=== PATIENT | male | born 1945 | race Caucasian/White ===

== ENCOUNTER → 2017-10-26 | Outpatient (CLI) | payer MEDICARE, OTHER ==
[~2017-10-26] MED LIST: BUPIVACAINE MPF 0.25% 10 ML VIAL.; IOHEXOL 180 MG/ML 10 ML VIAL.; LIDOCAINE 1% PF 2 ML VIAL.; methylPREDNISolone ACETATE 80 MG/ML VIAL.
== END | disposition home or self-care (01) ==
LOC: PNCL 08:19
DX: M51.16 Intervertebral disc disorders with radiculopathy, lumbar region (principal); M48.061 Spinal stenosis, lumbar region without neurogenic claudication; Z79.899 Other long term (current) drug therapy
CPT/HCPCS: 64483; J1040; J3490; Q9965

== ENCOUNTER 2018-06-24 07:26 | Inpatient (IN) | payer MEDICARE, OTHER ==
[~2018-06-24] VITALS: Ht 172.7 cm; Wt 98.5 kg
[2018-06-24] VITALS (11 sets, daily range): BP systolic 146–193; BP diastolic 67–92
[~2018-06-24 07:26] MED LIST changes: +AMLO10TA8 PO; +ASPI-482 PO; +ATOR10TA60 PO; -BUPIVACAINE MPF 0.25% 10 ML VIAL.; +CYCL10TA2 PO; +HYDR-2761 PO; +IBUP200C9 PO; -IOHEXOL 180 MG/ML 10 ML VIAL.; -LIDOCAINE 1% PF 2 ML VIAL.; +LISI10TA2 PO; +MELO15TA23 PO; +METO50TA6 PO; +MULT1TAB52 PO; +ROPI1TAB2 PO; +ZOLP10TA4 PO; -methylPREDNISolone ACETATE 80 MG/ML VIAL.
--- NOTE | 2018-06-24 08:09 | PHYS DOC ---
Past Medical History Past Medical History: High Cholesterol, Hypertension Additional Past Medical Histor: rls Past Surgical History bilateral hernia repair lipoma removal "tumor drainage in 7th grade of the abdomen" Smoking: Cigarettes Alcohol Use: Occasionally Drug Use: None Adult General Chief Complaint Chief Complaint: CHEST PAIN HPI HPI 72-year-old male presenting to the emergency department today with a referral from his primary care physician because his EKG was abnormal. He was seen on Wednesday with Dr. linn who asked him to go to the emergency department based on the patient's EKG. The patient had somethings to do. He returns this morning to be evaluated. He describes a mild dull pain in his chest this morning it is nonradiating intermittent and without alleviating factors. He denies nausea or vomiting. Review of systems is negative for abdominal pain nausea vomiting diaphoresis fevers or chills. All other review of systems is negative unless otherwise noted in history of present illness. ED course: 72-year-old male presenting the emergency department today with chest pain referred here by his primary physician for EKG abnormalities. EKG obtained and reviewed by myself this morning and compared to previous from clinic which the patient brought in. EKG shows sinus rhythm with a regular rate. ST segments are congruent. Not suggestive of ACS. There are nonspecific T- wave inversions in the lateral leads including high lateral I and aVL. 08:19AM Troponin is positive. We will give the patient aspirin. Patient's pain is improving in the emergency department. We will admit the patient to Dr. linn who I spoke to at [phone]. He accepted the patient for admission. Basic bridge orders placed.09:44AM. Review of Systems Review of Systems SEE ABOVE. Current Medications Current Medications Current Medications Medications (Trade) Dose Ordered Sig/Deneen Start Time Stop Time Status Last Admin Dose Admin Aspirin (Children'S Aspirin) 324 mg 1X ONCE 06/24/18 09:15 06/24/18 09:16 DC 06/24/18 09:03 324 MG Sodium Chloride 1,000 ml @ 100 mls/hr Q10H 06/24/18 08:43 06/25/18 08:42 06/24/18 09:02 100 MLS/HR Allergies Allergies Allergies Coded Allergies Type Severity Reaction Last Updated Verified No Known Drug Allergies 08/16/13 No Physical Exam Physical Exam SEE ABOVE Constitutional: Well developed, well nourished, no acute distress, non-toxic appearance. HENT: Normocephalic, atraumatic, bilateral external ears normal, oropharynx moist, no oral exudates, nose normal. [] Eyes: PERRLA, EOMI, conjunctiva normal, no discharge. Neck: Normal range of motion, no tenderness, supple, no stridor. [] Cardiovascular:Heart rate regular rhythm, no murmur Lungs & Thorax: Bilateral breath sounds clear to auscultation [] Abdomen: Bowel sounds normal, soft, no tenderness, no masses, no pulsatile masses. Skin: Warm, dry, no erythema, no rash. [] Back: No tenderness, no CVA tenderness. Extremities: No tenderness, no cyanosis, no clubbing, ROM intact, no edema. palpable pulses in both arms. Neurologic: Alert and oriented X 3, normal motor function, normal sensory function, no focal deficits noted. [] Psychologic: Affect normal, judgement normal, mood normal. Current Patient Data Vital Signs Vital Signs Date Time Temp Pulse Resp B/P (MAP) Pulse Ox O2 Delivery O2 Flow Rate FiO2 06/24/18 07:45 98.4 73 16 198/88 (124) 97 Room Air 98.4 Lab Values Laboratory Tests Test 06/24/18 08:00 White Blood Count 6.9 x10^3/uL (4.0-11.0) Red Blood Count 5.63 x10^6/uL (4.30-5.70) Hemoglobin 16.9 g/dL (13.0-17.5) Hematocrit 49.9 % (39.0-53.0) Mean Corpuscular Volume 89 fL (79-100) Mean Corpuscular Hemoglobin 30 pg (25-35) Mean Corpuscular Hemoglobin Concent 34 g/dL (31-37) Red Cell Distribution Width 13.8 % (11.5-14.5) Platelet Count 196 x10^3/uL (140-400) Neutrophils (%) (Auto) 62 % (31-73) Lymphocytes (%) (Auto) 26 % (24-48) Monocytes (%) (Auto) 9 % (0-9) Eosinophils (%) (Auto) 3 % (0-3) Basophils (%) (Auto) 1 % (0-3) Neutrophils # (Auto) 4.3 x10^3uL (1.8-7.7) Lymphocytes # (Auto) 1.8 x10^3/uL (1.0-4.8) Monocytes # (Auto) 0.6 x10^3/uL (0.0-1.1) Eosinophils # (Auto) 0.2 x10^3/uL (0.0-0.7) Basophils # (Auto) 0.1 x10^3/uL (0.0-0.2) Prothrombin Time 13.6 SEC (11.7-14.0) Prothrombin Time INR 1.1 (0.8-1.1) PTT 27 SEC (24-38) Sodium Level 140 mmol/L (136-145) Potassium Level 4.2 mmol/L (3.5-5.1) Chloride Level 104 mmol/L (98-107) Carbon Dioxide Level 26 mmol/L (21-32) Anion Gap 10 (6-14) Blood Urea Nitrogen 11 mg/dL (8-26) Creatinine 1.2 mg/dL (0.7-1.3) Estimated GFR (Cockcroft-Gault) 59.9 Glucose Level 111 mg/dL (70-99) H Lactic Acid Level 1.0 mmol/L (0.4-2.0) Calcium Level 9.0 mg/dL (8.5-10.1) Total Bilirubin 0.4 mg/dL (0.2-1.0) Direct Bilirubin 0.1 mg/dL (0.0-0.2) Aspartate Amino Transferase (AST) 18 U/L (15-37) Alanine Aminotransferase (ALT) 26 U/L (16-63) Alkaline Phosphatase 90 U/L (46-116) Troponin I Quantitative 0.168 ng/mL (0.000-0.055) BX-Btl-N-Type Natriuretic Peptide 2372 pg/mL (0-124) H Total Protein 7.4 g/dL (6.4-8.2) Albumin 3.6 g/dL (3.4-5.0) Lipase 94 U/L (73-393) Laboratory Tests 06/24/18 08:00 Laboratory Tests 06/24/18 08:00 EKG EKG [] Radiology/Procedures Radiology/Procedures [] Course & Med Decision Making Course & Med Decision Making Pertinent Labs and Imaging studies reviewed. (See chart for details) [] Dragon Disclaimer Dragon Disclaimer This electronic medical record was generated, in whole or in part, using a voice recognition dictation system. Departure Departure Impression: Primary Impression: Chest pain Disposition: ADMITTED INPATIENT Admitting Physician: Jd Durán Condition: STABLE Referrals: JD DURÁN MD (PCP) DILSHAD BAIG MD Jun 24, 2018 08:09
[2018-06-24 08:15] LABS: BASO # 0.1 x10^3/uL (0.0-0.2); BASO % 1 % (0-3); EOS # 0.2 x10^3/uL (0.0-0.7); EOS % 3 % (0-3); HEMATOCRIT 49.9 % (39.0-53.0); HEMOGLOBIN 16.9 g/dL (13.0-17.5); LYMPH # 1.8 x10^3/uL (1.0-4.8); LYMPH % 26 % (24-48); MEAN CORPUSCULAR HEMOGLOBIN 30 pg (25-35); MEAN CORPUSCULAR HGB CONC 34 g/dL (31-37); MEAN CORPUSCULAR VOLUME 89 fL (79-100); MONO # 0.6 x10^3/uL (0.0-1.1); MONO % 9 % (0-9); NEUT # 4.3 x10^3uL (1.8-7.7); NEUT % 62 % (31-73); PLATELET COUNT 196 x10^3/uL (140-400); RED BLOOD COUNT 5.63 x10^6/uL (4.30-5.70); RED CELL DISTRIBUTION WIDTH 13.8 % (11.5-14.5); WHITE BLOOD COUNT 6.9 x10^3/uL (4.0-11.0)
[2018-06-24 08:24] LABS: PROTHROMBIN TIME PATIENT 13.6 SEC (11.7-14.0)
--- NOTE | 2018-06-24 08:24 | RAD ---
EXAM: CHEST 1 VIEW History: Chest pain COMPARISON: None available. TECHNIQUE: Single portable radiograph of the chest FINDINGS: The cardiac silhouette is unremarkable. The lungs are clear bilaterally. The costophrenic sulci are clear and well demarcated. IMPRESSION: No radiographic evidence of an acute cardiopulmonary process. Electronically signed by: Skinny Cano MD (06/24/2018 8:21 AM) [id number]
[2018-06-24 08:32] LABS: CREATININE 1.2 mg/dL (0.7-1.3); GFR 59.9; POTASSIUM 4.2 mmol/L (3.5-5.1)
[2018-06-24 08:37] LABS: ALBUMIN 3.6 g/dL (3.4-5.0); DIRECT BILIRUBIN 0.1 mg/dL (0.0-0.2); TOTAL BILIRUBIN 0.4 mg/dL (0.2-1.0); TOTAL PROTEIN 7.4 g/dL (6.4-8.2)
[2018-06-24] MEDS ORDERED: IV NORMAL SALINE 1000ML BAG 1,000 ML IV SCH (08:43)
[2018-06-24] MEDS ORDERED: ASPIRIN CHEWABLE 81 MG TABLET. PO ONE (09:15)
[2018-06-24] MEDS ORDERED: NITROGLYCERIN SUBLINGUAL 0.4 MG BOTTLE OF 25. SL PRN (09:45)
[2018-06-24] MEDS ORDERED: HYDROcodone/APAP 5/325MG 1 TAB TABLET PO PRN (11:00)
[2018-06-24] MEDS ORDERED: METOPROLOL TART IMMED RELEASE 50 MG TABLET. PO SCH (11:30)
[2018-06-24] MEDS: ENOXAPARIN 40 MG/0.4 ML SYRINGE. SQ SCH (11:38)
[2018-06-24] MEDS: amLODIPine BESYLATE 10 MG TABLET PO SCH (11:38)
[2018-06-24] MEDS: rOPINIRole 1 MG TABLET. PO SCH ×2 (11:38→21:27)
[2018-06-24] MEDS: MULTIVITAMIN with MINERAL TABLET. PO SCH (11:38)
[2018-06-24 12:39] LABS: BILIRUBIN,URINE NEGATIVE (NEG); CLARITY,URINE CLEAR; COLOR,URINE YELLOW; NITRITE,URINE NEGATIVE (NEG); PROTEIN,URINE NEGATIVE (NEG-TRACE); UROBILINOGEN,URINE 0.2 mg/dL (0.2 mg/dL)
--- NOTE | 2018-06-24 12:39 | EKG ---
[facility] [address] [place] [address] Test Date: 2018-06-24 Test Time: 07:47:21 Pat Name: AMARILYS SERVIN Department: Room: 252 1 Gender: M Billing Analyst: : [id number] Requested By: DILSHAD BAIG Order Number: [id number] Reading MD: Teddy Clemens MD Measurements Intervals [place] Rate: 73 P: 59 [place]: 176 QRS: -22 QRSD: 86 T: 102 QT: 384 QTc: 427 Interpretive Statements SINUS RHYTHM CONSIDER LVH POOR R WAVE PROGRESSION Electronically Signed On 06-24-2018 17:32:13 CDT by Teddy Clemens MD
[2018-06-24 12:49] LABS: BACTERIA,URINE 0 /HPF (0-FEW); RBC,URINE 0 /HPF (0-2); SQUAMOUS EPITHELIAL CELL,UR FEW /LPF; WBC,URINE RARE /HPF (0-4)
--- NOTE | 2018-06-24 13:26 | PDOC2 ---
HELEN LUNDY CROCHETER 06/24/18 1326: CARDIAC CONSULT DATE OF CONSULT Date of Consult DATE: 06/24/18 TIME: 13:22 REASON FOR CONSULT Reason for Consult: Elevated troponin REFERRING PHYSICIAN Referring Physician: Dr. Durán SOURCE Source: Chart review, Patient HISTORY OF PRESENT ILLNESS HISTORY OF PRESENT ILLNESS This is a 72 yo male who presented to the ED from Dr. Durán's office secondary to abnormal EKG. Patient was at PCP office for routine followup two days ago. EKG was conducted and was reportedly abnormal. PCP referred patient tho the ED for further cardiac workup. Patient decided to come to the ED today as he has to take care of some things over the last couple of day. Did not take his routine oral antiHTN therapy and he does report compliance with these. BP significantly elevated upon arrival. Trop noted to be mildly elevated at 0.186. Patient reports experiencing some mild chest pressure in his central chest in the ED. No associated SOA, palpitations, diaphoresis, dizziness, or nausea/ vomiting. Pain lasted about an hours and resolved without intervention. Feels pain is related to anxiety. Patient additionally denies any recent CP with exertion, WISE, orthopnea, or PND. No previous h/o CAD. PAST MEDICAL HISTORY Cardiovascular: HTN, Hyperlipidemia Pulmonary: Other (ELIAS with CPAP) CENTRAL NERVOUS SYSTEM: Other (no pertinent hx) GI: No pertinent hx Heme/Onc: No pertinent hx Hepatobiliary: No pertinent hx Psych: Anxiety Musculoskeletal: Osteoarthritis Rheumatologic: No pertinent hx Infectious disease: No pertinent hx ENT: No pertinent hx Renal/: No pertinent hx Endocrine: Diabetes Dermatology: No pertinent hx PAST SURGICAL HISTORY Past Surgical History: Hernia Repair FAMILY HISTORY Family History: Diabetes, Hypertension SOCIAL HISTORY Smoke: 1 pack per day ALCOHOL: none Drugs: None Lives: with Family CURRENT MEDICATIONS CURRENT MEDICATIONS Current Medications Medications (Trade) Dose Ordered Sig/Deneen Route PRN Reason Start Time Stop Time Status Last Admin Dose Admin Aspirin (Children'S Aspirin) 324 mg 1X ONCE PO 06/24/18 09:15 06/24/18 09:16 DC 06/24/18 09:03 Sodium Chloride 1,000 ml @ 100 mls/hr Q10H IV 06/24/18 08:43 06/24/18 12:06 DC 06/24/18 09:02 Amlodipine Besylate (Norvasc) 10 mg DAILY PO 06/24/18 11:30 06/24/18 11:38 Metoprolol Tartrate (Lopressor) 50 mg BID PO 06/24/18 11:30 06/24/18 11:38 Multivitamins (Thera M Plus) 1 tab DAILY PO 06/24/18 11:30 06/24/18 11:38 Ropinirole HCl (Requip) 2 mg BID PO 06/24/18 11:30 06/24/18 11:38 Enoxaparin Sodium (Lovenox 40mg Syringe) 40 mg Q24H SQ 06/24/18 11:30 06/24/18 11:38 ALLERGIES ALLERGIES: Coded Allergies: No Known Drug Allergies (Unverified , 08/16/13) ROS Review of System 14 point ROS conducted with pertinent positives noted above in HPI. PHYSICAL EXAM General: Alert, Oriented X3, Cooperative, No acute distress HEENT: Atraumatic, Mucous membr. moist/pink Lungs: Clear to auscultation, Normal air movement Heart: Regular rate, Normal S1, Normal S2, Other (2/6 systolic murmur ) Extremities: No edema, Normal pulses Skin: No significant lesion Neuro: Normal speech, Sensation intact Psych/Mental Status: Mental status NL, Mood NL MUSCULOSKELETAL: Osteoarthritic changes both hands VITALS VITALS Vital Signs Date Time Temp Pulse Resp B/P (MAP) Pulse Ox O2 Delivery O2 Flow Rate FiO2 06/24/18 11:38 69 198/106 06/24/18 11:16 Room Air 06/24/18 11:05 98.0 18 98 98.0 LABS Lab: Laboratory Tests Test 06/24/18 08:00 06/24/18 09:50 White Blood Count 6.9 x10^3/uL (4.0-11.0) Red Blood Count 5.63 x10^6/uL (4.30-5.70) Hemoglobin 16.9 g/dL (13.0-17.5) Hematocrit 49.9 % (39.0-53.0) Mean Corpuscular Volume 89 fL (79-100) Mean Corpuscular Hemoglobin 30 pg (25-35) Mean Corpuscular Hemoglobin Concent 34 g/dL (31-37) Red Cell Distribution Width 13.8 % (11.5-14.5) Platelet Count 196 x10^3/uL (140-400) Neutrophils (%) (Auto) 62 % (31-73) Lymphocytes (%) (Auto) 26 % (24-48) Monocytes (%) (Auto) 9 % (0-9) Eosinophils (%) (Auto) 3 % (0-3) Basophils (%) (Auto) 1 % (0-3) Neutrophils # (Auto) 4.3 x10^3uL (1.8-7.7) Lymphocytes # (Auto) 1.8 x10^3/uL (1.0-4.8) Monocytes # (Auto) 0.6 x10^3/uL (0.0-1.1) Eosinophils # (Auto) 0.2 x10^3/uL (0.0-0.7) Basophils # (Auto) 0.1 x10^3/uL (0.0-0.2) Prothrombin Time 13.6 SEC (11.7-14.0) Prothromb Time International Ratio 1.1 (0.8-1.1) Activated Partial Thromboplast Time 27 SEC (24-38) Sodium Level 140 mmol/L (136-145) Potassium Level 4.2 mmol/L (3.5-5.1) Chloride Level 104 mmol/L (98-107) Carbon Dioxide Level 26 mmol/L (21-32) Anion Gap 10 (6-14) Blood Urea Nitrogen 11 mg/dL (8-26) Creatinine 1.2 mg/dL (0.7-1.3) Estimated GFR (Cockcroft-Gault) 59.9 Glucose Level 111 mg/dL (70-99) Lactic Acid Level 1.0 mmol/L (0.4-2.0) Calcium Level 9.0 mg/dL (8.5-10.1) Total Bilirubin 0.4 mg/dL (0.2-1.0) Direct Bilirubin 0.1 mg/dL (0.0-0.2) Aspartate Amino Transf (AST/SGOT) 18 U/L (15-37) Alanine Aminotransferase (ALT/SGPT) 26 U/L (16-63) Alkaline Phosphatase 90 U/L (46-116) Troponin I Quantitative 0.168 ng/mL (0.000-0.055) PV-Gzm-Z-Type Natriuretic Peptide 2372 pg/mL (0-124) Total Protein 7.4 g/dL (6.4-8.2) Albumin 3.6 g/dL (3.4-5.0) Lipase 94 U/L (73-393) Urine Collection Type Unknown Urine Color Yellow Urine Clarity Clear Urine pH 5.0 Urine Specific [place] 1.020 Urine Protein Negative mg/dL (NEG-TRACE) Urine Glucose (UA) Negative mg/dL (NEG) Urine Ketones (Stick) Negative mg/dL (NEG) Urine Blood Negative (NEG) Urine Nitrite Negative (NEG) Urine Bilirubin Negative (NEG) Urine Urobilinogen Dipstick 0.2 mg/dL (0.2 mg/dL) Urine Leukocyte Esterase Negative (NEG) Urine RBC 0 /HPF (0-2) Urine WBC Rare /HPF (0-4) Urine Squamous Epithelial Cells Few /LPF Urine Bacteria 0 /HPF (0-FEW) ASSESSMENT/PLAN ASSESSMENT/PLAN 1. Chest pressure, mixed features. Possibly related to #2. EKG notable for lateral t-wave inversion 2. Accelerated hypertension 3. Mild troponin elevation; 0168 upon arrival 4. Hyperlipidemia; statin 5. Diabetes, II 6. ELIAS with CPAP 7. Tobaccoism; discussed/encourage cessation 8. Anxiety Recommendations Trend trop Check lipids Echo to assess LV systolic function Will need further ischemic workup based upon risk factors and EKG. Stress test versus cardiac cath dependent upon trop trend and echo. Maintain BP control HEIDY ROBERTS MD 06/24/18 1827: CARDIAC CONSULT ASSESSMENT/PLAN ASSESSMENT/PLAN Patient seen and examined. Agree with above nurse practitioner note. 72-year-old male with uncontrolled hypertension presenting with elevated troponin. He has moderate LV systolic dysfunction. He was taken to the catheter lab for further evaluation. No significant coronary artery disease noted. Continue medical therapy. Follow-up on an outpatient basis for titration of medical therapy HELEN LUNDY APRN Jun 24, 2018 13:26 HEIDY ROBERTS MD Jun 24, 2018 18:27
[2018-06-24] MEDS ORDERED: LIDOCAINE 1% Multi-Dose 20 ML VIAL. ONE (13:53)
[2018-06-24] MEDS ORDERED: MIDAZOLAM HCL/PF 2 MG/2 ML VIAL. ONE (14:14)
[2018-06-24] MEDS ORDERED: VERAPAMIL 5 MG/2 ML VIAL. ONE (14:14)
[2018-06-24] MEDS ORDERED: fentaNYL PF VIAL 100 MCG/2 ML VIAL ONE (14:14)
[2018-06-24] MEDS ORDERED: HEPARIN for IV BOLUS 10,000 UNIT/10 ML VIAL. ONE (14:14)
[2018-06-24] MEDS ORDERED: NITROGLYCERIN 200 MCG/2 ML SYRINGE FOR CATH/VASC LAB. ONE (14:15)
[2018-06-24] MEDS ORDERED: IODIXANOL 320 MG/ML 100 ML VIAL. ONE (14:25)
[2018-06-24] MEDS ORDERED: ALPRAZolam 0.5 MG TABLET PO ONE ×3 (14:30→21:45)
[2018-06-24] MEDS ORDERED: HEPARIN for IV BOLUS 10,000 UNIT/10 ML VIAL. IART ONE (14:30)
[2018-06-24] MEDS ORDERED: MIDAZOLAM HCL/PF 2 MG/2 ML VIAL. IV ONE (14:30)
[2018-06-24] MEDS ORDERED: LIDOCAINE 1% PF 2 ML VIAL. INJ ONE (14:30)
[2018-06-24] MEDS ORDERED: fentaNYL PF VIAL 100 MCG/2 ML VIAL IV ONE (14:30)
[2018-06-24] MEDS ORDERED: IODIXANOL 320 MG/ML 100 ML VIAL. IART ONE (14:30)
[2018-06-24] MEDS ORDERED: VERAPAMIL 5 MG/2 ML VIAL. IART ONE (14:30)
[2018-06-24] MEDS ORDERED: NITROGLYCERIN 200 MCG/2 ML SYRINGE FOR CATH/VASC LAB. IART ONE (14:30)
--- NOTE | 2018-06-24 15:39 | CARD ---
MR#: [id number] Date of Study: 06/24/2018 Ordering Physician: KISHAN HUGHES, Referring Physician: KISHAN HUGHES, Tech: RT Shannan (R) APPROVED REPORT Technologist: RT Shannan (R) Nurse: Tangela Almonte Procedure(s) performed: Moderate Sedation: 30 minutes Fluoro Time: 5.3 min Coronary angiography HISTORY The patient is a 72 year-old male with a history of : hypertension. INDICATION The indication(s) include : non-STEMI , dyspnea. PROCEDURE NARRATIVE INFORMED CONSENT: After explaining the risks and benefits of the procedure and alternatives, informed consent was obtained. The patient was brought electively to the cardiac catheterization lab. A timeout was performed confi rming the patient's name, date of , procedure, and site of procedure. All necessary personnel w ere wearing the appropriate protective equipment and radiation monitor devices. (See nursing notes for medications administered). ACCESS: The right wrist was sterilely prepped and draped in the usual fashion. The right wrist was infiltrat ed with 1 mL of 2% lidocaine for subcutaneous anesthesia. A 6 Maori Terumo glide sheath was inserte d into the right radial artery without difficulty. CORONARY ANGIOGRAPHY: Right and left coronary angiography was performed using a 6Fr TIG 4.0 catheter. All catheter exchan ges and advancements were performed over a guidewire. CLOSURE: At case completion the right radial sheath was removed and a Terumo radial band was applied with 13 m l of air. COMPLICATIONS: The patient tolerated the procedure well and there were no immediate complications. FINDINGS: HEMODYNAMICS: AO: 150/80 CORONARY ANGIOGRAPHY: LM is a large caliber vessel with normal angiographic appearance. LAD is a moderate caliber vessel with normal angiographic appearance. Several small caliber diagonal vessels are without significant disease. LCx is a moderate caliber non-dominant vessel with mild luminal irregularities. OM1 is a moderate caliber vessel with normal angiographic appearance. RCA is a large caliber dominant vessel with mild disease of up to 30%. RPDA and RPL are moderate to large caliber vessels with mild luminal irregularities. Conclusion 1. No significant obstructive coronary disease Recommendations 1. Medical therapy Signed by : Teddy Katrapati, Electronically Approved : 06/24/2018 15:38:48
--- NOTE | 2018-06-24 15:42 | CARD ---
MR#: [id number] Date of Study: 06/24/2018 Ordering Physician: HELEN LUNDY, Referring Physician: KISHAN HUGHES Tech: Mary Troncoso [facility] APPROVED REPORT EXAM: Two-dimensional and M-mode echocardiogram with Doppler and color Doppler. Other Information Quality : AverageHR: 60bpm Rhythm : NSR INDICATION Elevated Troponin 2D DIMENSIONS RVDd3.4 (2.9-3.5cm)Left Atrium(2D)3.3 (1.6-4.0cm) IVSd1.5 (0.7-1.1cm)Aortic Root(2D)3.4 (2.0-3.7cm) LVDd5.9 (3.9-5.9cm)LVOT Diameter2.1 (1.8-2.4cm) PWd1.2 (0.7-1.1cm)LVDs4.8 (2.5-4.0cm) FS (%) 17.3 %SV60.3 ml Aortic Valve AoV Peak Chevy.131.5cm/sAoV VTI22.9cm AO Peak GR.6.9mmHgLVOT Peak Chevy.78.1cm/s AO Mean GR.4mmHgAVA (VMAX)2.09cm2 CM (VTI)2.36gr6YV P 1/2 Qpdi808kb Mitral Valve MV E Jhqmljoq01.9cm/sMV DECEL [id number] MV A Bdbnwqbo62.7cm/sE/A Ratio1.5 MV A Wclokhhv31ep LEFT VENTRICLE The Left Ventricle is mild to moderately dilated. There is mild concentric left ventricular hypertrop hy. The ejection fraction is severely impaired. The Ejection Fraction is 25-30%. There is global hypo kinesis of the left ventricle. Transmitral Doppler flow pattern is abnormal. RIGHT VENTRICLE The right ventricle is normal size. There is normal right ventricular wall thickness. The right ventr icular systolic function is normal. ATRIA The left atrium size is normal. The right atrium size is normal. The interatrial septum is intact wit h no evidence for an atrial septal defect or patent foramen ovale as noted on 2-D or Doppler imaging. AORTIC VALVE The aortic valve is normal in structure and function. The aortic valve is trileaflet. Doppler and Col or Flow revealed mild aortic regurgitation. There is no significant aortic valvular stenosis. There i s no aortic valvular vegetation. MITRAL VALVE The mitral valve is normal in structure and function. There is no evidence of mitral valve prolapse. There is no mitral valve stenosis. Doppler and Color-flow revealed mild mitral regurgitation. TRICUSPID VALVE The tricuspid valve is normal in structure and function. Doppler and Color Flow revealed trace tricus pid regurgitation. There is no tricuspid valve prolapse or vegetation. There is no tricuspid valve st enosis. PULMONIC VALVE The pulmonic valve is not well visualized. GREAT VESSELS The aortic root is normal in size. The ascending aorta is mildly dilated at 4.0cm. The IVC is dilated and collapses >50% with inspiration. PERICARDIAL EFFUSION There is no evidence of significant pericardial effusion. Critical Notification Critical Value: No <Conclusion> The Left Ventricle is mild to moderately dilated. The ejection fraction is severely impaired. The Ejection Fraction is 25-30%. There is global hypokinesis of the left ventricle. There is mild concentric left ventricular hypertrophy. There is no significant aortic valvular stenosis. Doppler and Color Flow revealed mild aortic regurgitation. Doppler and Color-flow revealed mild mitral regurgitation. Doppler and Color Flow revealed trace tricuspid regurgitation. The ascending aorta is mildly dilated at 4.0cm. Signed by : Abner Silver MD Electronically Approved : 06/24/2018 15:41:59
[2018-06-24] MEDS: CARVEDILOL 6.25 MG TABLET. PO SCH (18:40)
[2018-06-24] MEDS ORDERED: LISINOPRIL 10 MG TABLET PO ONE (18:45)
[2018-06-24] MEDS ORDERED: ATORVASTATIN CALCIUM 10 MG TABLET. PO SCH (21:00)
--- NOTE | 2018-06-24 22:03 | NUR ---
CHF teaching, heart healthy diet reviewed with patient at this time. Pt demonstrated verbal understanding of education and he was given the CHF written education booklet as well at this time.
[2018-06-25 03:16] VITALS: BP 159/81
[2018-06-25 04:04] LABS: BASO # 0.1 x10^3/uL (0.0-0.2); BASO % 1 % (0-3); EOS # 0.2 x10^3/uL (0.0-0.7); EOS % 4 % (0-3); HEMATOCRIT 48.7 % (39.0-53.0); LYMPH % 31 % (24-48); MEAN CORPUSCULAR HEMOGLOBIN 29 pg (25-35); MEAN CORPUSCULAR HGB CONC 33 g/dL (31-37); MEAN CORPUSCULAR VOLUME 88 fL (79-100); MONO # 0.5 x10^3/uL (0.0-1.1); MONO % 8 % (0-9); NEUT # 3.6 x10^3uL (1.8-7.7); NEUT % 57 % (31-73); PLATELET COUNT 179 x10^3/uL (140-400); RED BLOOD COUNT 5.51 x10^6/uL (4.30-5.70); WHITE BLOOD COUNT 6.4 x10^3/uL (4.0-11.0)
[2018-06-25 04:18] LABS: CALCIUM 8.5 mg/dL (8.5-10.1); CREATININE 1.1 mg/dL (0.7-1.3); GFR 66.2; POTASSIUM 3.7 mmol/L (3.5-5.1)
--- NOTE | 2018-06-25 04:22 | NUR ---
I have reviewed the notes, assessment, and/or procedures performed by Faina Mitchell patient care nursing assistant and concur with her documentation unless otherwise noted.
[2018-06-25 07:00] VITALS: BP 173/86
[2018-06-25] MEDS: amLODIPine BESYLATE 10 MG TABLET PO SCH (08:48)
[2018-06-25] MEDS: CARVEDILOL 6.25 MG TABLET. PO SCH (08:48)
[2018-06-25] MEDS: rOPINIRole 1 MG TABLET. PO SCH (08:48)
[2018-06-25] MEDS: MULTIVITAMIN with MINERAL TABLET. PO SCH (08:49)
[2018-06-25] MEDS ORDERED: FUROSEMIDE 20 MG TABLET PO SCH (09:00)
[2018-06-25] MEDS ORDERED: LISINOPRIL 10 MG TABLET PO SCH (09:00)
[2018-06-25 11:00] VITALS: BP 151/75
--- NOTE | 2018-06-25 11:38 | PDOC ---
PROGRESS NOTES Subjective Subjective Patient seen and examined The patient is feeling better today. Objective Objective Vital Signs Date Time Temp Pulse Resp B/P (MAP) Pulse Ox O2 Delivery O2 Flow Rate FiO2 06/25/18 08:48 64 173/86 06/25/18 08:00 Room Air 06/25/18 07:00 97.4 18 96 97.4 06/24/18 14:56 2.0 Intake and Output 06/25/18 07:00 Intake Total 240 ml Balance 240 ml Intake Oral 240 ml # Voids 4 Physical Exam Abdomen: Normal bowel sounds Heart: Regular rate General: No acute distress Lungs: Clear to auscultation Assessment Assessment Problems Medical Problems: (1) Chest pain Status: Acute 1. Chest pressure, mixed features. Resolved. As noted above catheterization with no significant coronary lesions. Moderately decreased LV systolic function. We'll continue medical treatment. 2. Accelerated hypertension. Still elevated. We'll increase medications today. 3. Mild troponin elevation; 0168 upon arrival. Catheterization as above. 4. Hyperlipidemia; statin 5. Diabetes, II 6. ELIAS with CPAP 7. Tobaccoism; discussed/encourage cessation CARDIAC CONSULT Comment Review of Relevant I have reviewed the following items norbert (where applicable) has been applied. Labs Laboratory Tests Test 06/24/18 08:00 06/24/18 09:50 06/24/18 13:50 06/25/18 03:30 White Blood Count 6.9 x10^3/uL (4.0-11.0) 6.4 x10^3/uL (4.0-11.0) Red Blood Count 5.63 x10^6/uL (4.30-5.70) 5.51 x10^6/uL (4.30-5.70) Hemoglobin 16.9 g/dL (13.0-17.5) 16.0 g/dL (13.0-17.5) Hematocrit 49.9 % (39.0-53.0) 48.7 % (39.0-53.0) Mean Corpuscular Volume 89 fL (79-100) 88 fL (79-100) Mean Corpuscular Hemoglobin 30 pg (25-35) 29 pg (25-35) Mean Corpuscular Hemoglobin Concent 34 g/dL (31-37) 33 g/dL (31-37) Red Cell Distribution Width 13.8 % (11.5-14.5) 14.0 % (11.5-14.5) Platelet Count 196 x10^3/uL (140-400) 179 x10^3/uL (140-400) Neutrophils (%) (Auto) 62 % (31-73) 57 % (31-73) Lymphocytes (%) (Auto) 26 % (24-48) 31 % (24-48) Monocytes (%) (Auto) 9 % (0-9) 8 % (0-9) Eosinophils (%) (Auto) 3 % (0-3) 4 % (0-3) Basophils (%) (Auto) 1 % (0-3) 1 % (0-3) Neutrophils # (Auto) 4.3 x10^3uL (1.8-7.7) 3.6 x10^3uL (1.8-7.7) Lymphocytes # (Auto) 1.8 x10^3/uL (1.0-4.8) 2.0 x10^3/uL (1.0-4.8) Monocytes # (Auto) 0.6 x10^3/uL (0.0-1.1) 0.5 x10^3/uL (0.0-1.1) Eosinophils # (Auto) 0.2 x10^3/uL (0.0-0.7) 0.2 x10^3/uL (0.0-0.7) Basophils # (Auto) 0.1 x10^3/uL (0.0-0.2) 0.1 x10^3/uL (0.0-0.2) Prothrombin Time 13.6 SEC (11.7-14.0) Prothromb Time International Ratio 1.1 (0.8-1.1) Activated Partial Thromboplast Time 27 SEC (24-38) Sodium Level 140 mmol/L (136-145) 139 mmol/L (136-145) Potassium Level 4.2 mmol/L (3.5-5.1) 3.7 mmol/L (3.5-5.1) Chloride Level 104 mmol/L (98-107) 105 mmol/L (98-107) Carbon Dioxide Level 26 mmol/L (21-32) 26 mmol/L (21-32) Anion Gap 10 (6-14) 8 (6-14) Blood Urea Nitrogen 11 mg/dL (8-26) 11 mg/dL (8-26) Creatinine 1.2 mg/dL (0.7-1.3) 1.1 mg/dL (0.7-1.3) Estimated GFR (Cockcroft-Gault) 59.9 66.2 Glucose Level 111 mg/dL (70-99) 117 mg/dL (70-99) Lactic Acid Level 1.0 mmol/L (0.4-2.0) Calcium Level 9.0 mg/dL (8.5-10.1) 8.5 mg/dL (8.5-10.1) Total Bilirubin 0.4 mg/dL (0.2-1.0) Direct Bilirubin 0.1 mg/dL (0.0-0.2) Aspartate Amino Transf (AST/SGOT) 18 U/L (15-37) Alanine Aminotransferase (ALT/SGPT) 26 U/L (16-63) Alkaline Phosphatase 90 U/L (46-116) Troponin I Quantitative 0.168 ng/mL (0.000-0.055) 0.149 ng/mL (0.000-0.055) CI-Aul-H-Type Natriuretic Peptide 2372 pg/mL (0-124) Total Protein 7.4 g/dL (6.4-8.2) Albumin 3.6 g/dL (3.4-5.0) Lipase 94 U/L (73-393) Urine Collection Type Unknown Urine Color Yellow Urine Clarity Clear Urine pH 5.0 Urine Specific [place] 1.020 Urine Protein Negative mg/dL (NEG-TRACE) Urine Glucose (UA) Negative mg/dL (NEG) Urine Ketones (Stick) Negative mg/dL (NEG) Urine Blood Negative (NEG) Urine Nitrite Negative (NEG) Urine Bilirubin Negative (NEG) Urine Urobilinogen Dipstick 0.2 mg/dL (0.2 mg/dL) Urine Leukocyte Esterase Negative (NEG) Urine RBC 0 /HPF (0-2) Urine WBC Rare /HPF (0-4) Urine Squamous Epithelial Cells Few /LPF Urine Bacteria 0 /HPF (0-FEW) Laboratory Tests Test 06/24/18 13:50 06/25/18 03:30 Troponin I Quantitative 0.149 ng/mL (0.000-0.055) White Blood Count 6.4 x10^3/uL (4.0-11.0) Red Blood Count 5.51 x10^6/uL (4.30-5.70) Hemoglobin 16.0 g/dL (13.0-17.5) Hematocrit 48.7 % (39.0-53.0) Mean Corpuscular Volume 88 fL (79-100) Mean Corpuscular Hemoglobin 29 pg (25-35) Mean Corpuscular Hemoglobin Concent 33 g/dL (31-37) Red Cell Distribution Width 14.0 % (11.5-14.5) Platelet Count 179 x10^3/uL (140-400) Neutrophils (%) (Auto) 57 % (31-73) Lymphocytes (%) (Auto) 31 % (24-48) Monocytes (%) (Auto) 8 % (0-9) Eosinophils (%) (Auto) 4 % (0-3) Basophils (%) (Auto) 1 % (0-3) Neutrophils # (Auto) 3.6 x10^3uL (1.8-7.7) Lymphocytes # (Auto) 2.0 x10^3/uL (1.0-4.8) Monocytes # (Auto) 0.5 x10^3/uL (0.0-1.1) Eosinophils # (Auto) 0.2 x10^3/uL (0.0-0.7) Basophils # (Auto) 0.1 x10^3/uL (0.0-0.2) Sodium Level 139 mmol/L (136-145) Potassium Level 3.7 mmol/L (3.5-5.1) Chloride Level 105 mmol/L (98-107) Carbon Dioxide Level 26 mmol/L (21-32) Anion Gap 8 (6-14) Blood Urea Nitrogen 11 mg/dL (8-26) Creatinine 1.1 mg/dL (0.7-1.3) Estimated GFR (Cockcroft-Gault) 66.2 Glucose Level 117 mg/dL (70-99) Calcium Level 8.5 mg/dL (8.5-10.1) Medications Current Medications Aspirin (Children'S Aspirin) 324 mg 1X ONCE PO Last administered on 06/24/18at 09:03; Start 06/24/18 at 09:15; Stop 06/24/18 at 09:16; Status DC Sodium Chloride 1,000 ml @ 100 mls/hr Q10H IV Last administered on 06/24/18at 09:02; Start 06/24/18 at 08:43; Stop 06/24/18 at 12:06; Status DC Nitroglycerin (Nitrostat) 0.4 mg PRN Q5MIN PRN SL CHEST PAIN; Start 06/24/18 at 09:45 Amlodipine Besylate (Norvasc) 10 mg DAILY PO Last administered on 06/25/18 08: 48; Start 06/24/18 at 11:30 Atorvastatin Calcium (Lipitor) 10 mg QHS PO Last administered on 06/24/18 21: 27; Start 06/24/18 at 21:00 Acetaminophen/ Hydrocodone Bitart (Lortab 5/325) 1 tab PRN Q6HRS PRN PO PAIN; Start 06/24/18 at 11:00 Metoprolol Tartrate (Lopressor) 50 mg BID PO Last administered on 06/24/18at 11: 38; Start 06/24/18 at 11:30; Stop 06/24/18 at 18:30; Status DC Multivitamins (Thera M Plus) 1 tab DAILY PO Last administered on 06/25/18 08: 49; Start 06/24/18 at 11:30 Ropinirole HCl (Requip) 2 mg BID PO Last administered on 06/25/18 08:48; Start 06/24/18 at 11:30 Enoxaparin Sodium (Lovenox 40mg Syringe) 40 mg Q24H SQ Last administered on at 11:38; Start 06/24/18 at 11:30 Alprazolam (Xanax) 0.5 mg 1X ONCE PO ; Start 06/24/18 at 14:30; Stop 06/24/18 at 21:30; Status DC Lidocaine HCl (Lidocaine 1% 20ml Vial) 20 ml STK-MED ONCE .ROUTE ; Start at 13:53; Stop 06/24/18 at 13:54; Status DC Heparin Sodium/ Sodium Chloride 1,000 ml @ As Directed STK-MED ONCE .ROUTE ; Start 06/24/18 at 13:53; Stop 06/24/18 at 13:54; Status DC Fentanyl Citrate (Fentanyl 2ml Vial) 100 mcg STK-MED ONCE .ROUTE ; Start at 14:14; Stop 06/24/18 at 14:17; Status DC Midazolam HCl (Versed) 2 mg STK-MED ONCE .ROUTE ; Start 06/24/18 at 14:14; Stop 06/24/18 at 14:17; Status DC Heparin Sodium (Porcine) (Heparin Sodium) 10,000 unit STK-MED ONCE .ROUTE ; Start 06/24/18 at 14:14; Stop 06/24/18 at 14:17; Status DC Verapamil HCl (Verapamil) 5 mg STK-MED ONCE .ROUTE ; Start 06/24/18 at 14:14; Stop 06/24/18 at 14:17; Status DC Nitroglycerin (Nitroglycerin) 200 mcg STK-MED ONCE .ROUTE ; Start 06/24/18 at 14 :15; Stop 06/24/18 at 14:17; Status DC Iodixanol (Visipaque 320) 100 ml STK-MED ONCE .ROUTE ; Start 06/24/18 at 14:25; Stop 06/24/18 at 14:26; Status DC Nitroglycerin (Nitroglycerin) 200 mcg 1X ONCE IART Last administered on at 14:30; Start 06/24/18 at 14:30; Stop 06/24/18 at 14:39; Status DC Verapamil HCl (Verapamil) 2.5 mg 1X ONCE IART Last administered on 06/24/18at 14:30; Start 06/24/18 at 14:30; Stop 06/24/18 at 14:39; Status DC Heparin Sodium (Porcine) (Heparin Sodium) 2,500 unit 1X ONCE IART Last administered on 06/24/18at 14:30; Start 06/24/18 at 14:30; Stop 06/24/18 at 14:39 ; Status DC Heparin Sodium/ Sodium Chloride (HEPARIN for ARTERIAL LINE FLUSH) 1,000 unit 1X ONCE IART Last administered on 06/24/18at 14:30; Start 06/24/18 at 14:30; Stop 06/24/18 at 14:39; Status DC Heparin Sodium/ Sodium Chloride (HEPARIN for ARTERIAL LINE FLUSH) 1,000 unit 1X ONCE IART Last administered on 06/24/18at 14:30; Start 06/24/18 at 14:30; Stop 06/24/18 at 14:39; Status DC Midazolam HCl (Versed) 2 mg 1X ONCE IV Last administered on 06/24/18at 14:30; Start 06/24/18 at 14:30; Stop 06/24/18 at 14:39; Status DC Fentanyl Citrate (Fentanyl 2ml Vial) 100 mcg 1X ONCE IV Last administered on 14:30; Start 06/24/18 at 14:30; Stop 06/24/18 at 14:39; Status DC Iodixanol (Visipaque 320) 100 ml 1X ONCE IART Last administered on 06/24/18 14:30; Start 06/24/18 at 14:30; Stop 06/24/18 at 14:39; Status DC Lidocaine HCl (Xylocaine-Mpf 1% 2ml Vial) 2 ml 1X ONCE INJ Last administered on 06/24/18 14:30; Start 06/24/18 at 14:30; Stop 06/24/18 at 14:39; Status DC Carvedilol (Coreg) 6.25 mg BIDWMEALS PO Last administered on 06/25/18 08:48; Start 06/24/18 at 18:45 Lisinopril (Prinivil) 10 mg DAILY PO Last administered on 06/25/18 08:48; Start 06/25/18 at 09:00 Lisinopril (Prinivil) 10 mg 1X ONCE PO Last administered on 06/24/18at 18:40; Start 06/24/18 at 18:45; Stop 06/24/18 at 18:46; Status DC Furosemide (Lasix) 20 mg DAILY PO Last administered on 06/25/18at 08:49; Start 06/25/18 at 09:00 Alprazolam (Xanax) 0.5 mg 1X ONCE PO ; Start 06/24/18 at 21:45; Stop 06/24/18 at 21:46; Status Cancel Alprazolam (Xanax) 0.5 mg 1X ONCE PO Last administered on 06/24/18at 21:48; Start 06/24/18 at 21:45; Stop 06/24/18 at 21:46; Status DC Active Scripts Active Reported Advil (Ibuprofen) 200 Mg Capsule 200 Mg PO PRN Hydrocodone-Apap 5-325 (Hydrocodone Bit/Acetaminophen) 1 Each Tablet 1 Tab PO PRN Q6HRS PRN Multivitamins (Multivitamin) 1 Each Tablet 1 Tab PO DAILY Metoprolol Tartrate 50 Mg Tablet 1 Tab PO BID Ropinirole Hcl 1 Mg Tablet 2 Mg PO BID Amlodipine Besylate 10 Mg Tablet 10 Mg PO DAILY Atorvastatin Calcium 10 Mg Tablet 10 Mg PO DAILY Vitals/I & O Vital Sign - Last 24 Hours 06/24/18 06/24/18 06/24/18 06/24/18 11:38 11:38 14:30 14:30 Pulse 68 69 62 Resp 14 B/P (MAP) 198/106 198/106 Pulse Ox 94 O2 Delivery Nasal Cannula O2 Flow Rate 2.0 06/24/18 06/24/18 06/24/18 06/24/18 14:56 15:00 15:15 15:30 Temp 97.7 97.7 Pulse 55 59 59 59 Resp 20 18 18 18 B/P (MAP) 160/78 (105) 149/79 (102) 166/81 (109) Pulse Ox 94 99 99 98 O2 Delivery Nasal Cannula Room Air Room Air Room Air O2 Flow Rate 2.0 06/24/18 06/24/18 06/24/18 06/24/18 15:45 16:15 16:45 17:45 Pulse 62 62 61 66 B/P (MAP) 186/88 (120) 180/82 (114) 172/89 (116) 169/88 (115) Pulse Ox 99 O2 Delivery Room Air 06/24/18 06/24/18 06/24/18 06/24/18 18:40 18:40 19:23 19:40 Temp 97.7 97.7 Pulse 67 66 68 Resp 20 B/P (MAP) 167/76 167/76 162/83 (109) Pulse Ox 95 O2 Delivery Room Air Room Air 06/24/18 06/24/18 06/25/18 06/25/18 20:00 22:51 03:16 07:00 Temp 97.9 97.4 97.4 97.9 97.4 97.4 Pulse 63 62 64 Resp 20 18 18 B/P (MAP) 160/67 (98) 159/81 (107) 173/86 (115) Pulse Ox 97 96 96 O2 Delivery Room Air Room Air Room Air Room Air 06/25/18 06/25/18 06/25/18 06/25/18 08:00 08:48 08:48 08:48 Pulse 64 64 64 B/P (MAP) 173/86 173/86 173/86 O2 Delivery Room Air Intake and Output 06/24/18 06/24/18 06/25/18 15:00 23:00 07:00 Intake Total 240 ml Balance 240 ml GLADYS BHAKTA MD Jun 25, 2018 11:38
[2018-06-25] MEDS ORDERED: LISINOPRIL 20 MG TABLET PO SCH (11:45)
[2018-06-25] MEDS: ENOXAPARIN 40 MG/0.4 ML SYRINGE. SQ SCH (12:09)
[2018-06-25 12:14] VITALS: BP 151/75
[2018-06-25] MEDS ORDERED: LISI-130 PO (14:22)
[2018-06-25] MEDS ORDERED: FURO20TA3 PO (14:34)
[2018-06-25] MEDS ORDERED: CARV6.2511 PO (14:34)
--- NOTE | 2018-06-25 14:43 | PDOC3 ---
Discharge Summary [facility] Date of Admission: Jun 24, 2018 Discharge Date: Jun 25, 2018 Admitting Diagnosis chest pain, hypertension Final Diagnosis Problems Medical Problems: (1) Chest pain Status: Acute CONSULTS ARMANDO Segura left heart cath Brief Hospital Course Mr. Jose is a 72 old who presented with and office appt and was hypertensive and had an EKG showing lateral T-wave inversion and advised to come to ER which he eventually did and taken to the laborer [employer] but not found to have significant CAD but he did have a lower than normal EF. He was placed on lisinopril 20 mg, metoprolol was changed to carvedilol 6.25 mg and furosemide 20 mg was added for his hypertension and cardiomyopathy. He is continued on his CPAP and other meds. He was noted to have a contusion to his left forehead and eye from tripping over a branch at home [employer] but not found to have any cardiac arrhythmia or head injury. Disposition home CONDITION AT DISCHARGE: Improved, Stable Diet lo salt, cardiac Scheduled Amlodipine Besylate (Amlodipine Besylate), 10 MG PO DAILY, (Reported) Atorvastatin Calcium (Atorvastatin Calcium), 10 MG PO DAILY, (Reported) Carvedilol (Carvedilol ), 6.25 MG PO BIDWMEALS Furosemide (Furosemide), 20 MG PO DAILY Lisinopril (Lisinopril), 20 MG PO DAILY Multivitamin (Multivitamins), 1 TAB PO DAILY, (Reported) Ropinirole Hcl (Ropinirole Hcl), 2 MG PO BID, (Reported) Scheduled PRN Hydrocodone Bit/Acetaminophen (Hydrocodone-Apap 5-325 ), 1 TAB PO PRN Q6HRS PRN for PAIN, (Reported) Discontinued Medications Ibuprofen (Advil), 200 MG PO for PAIN, (Reported) Metoprolol Tartrate (Metoprolol Tartrate), 1 TAB PO BID, (Reported) Follow Up 1-2 weeks with Ruthie Whittington MD Jun 25, 2018 14:43
[2018-06-25] MEDS ORDERED: ATOR10TA60 PO (14:51)
--- NOTE | 2018-06-25 15:37 | NUR ---
Discharge Note: [facility] [address] [place] [address] Discharge instructions and discharge home medications reviewed with patient and a copy given. All questions have been answered and understanding verbalized. Right wrist insertion site without bleeding. The following instructions and handouts were given: CHF teachings, discharge instructions, scripts Discontinued lines and drains: Left A/C #20 Patient discharged to home with son via wheelchair.
--- NOTE | 2018-06-25 15:57 | HP ---
ADMIT DATE: 06/24/2018 ADMISSION DIAGNOSIS: Chest pain. HISTORY OF PRESENT ILLNESS: A 72-year-old white male who presented to the office, saw Dr. Durán, was hypertensive, had an EKG done, which was abnormal showing some T-wave inversions and ST segment depression. He advised the patient to come to the ER and the patient eventually did where he was seen and evaluated. His troponin was elevated. He was given aspirin and admitted. Dr. Clemens saw him in consultation, took him to the laboratory aide. PAST MEDICAL HISTORY: Significant for hypertension, hyperlipidemia and restless legs. 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 FAMILY HISTORY: Noncontributory. SOCIAL HISTORY: Positive for cigarettes, occasional alcohol, no drugs. ALLERGIES: He has no known drug allergies. HOME MEDICATIONS: Include atorvastatin 10 mg at bedtime, amlodipine 10 mg, hydrocodone APAP 5/325 q.i.d. p.r.n., ropinirole 2 mg b.i.d., multivitamin daily, Advil 200 mg p.r.n. pain, metoprolol 50 mg b.i.d. REVIEW OF SYSTEMS: CONSTITUTIONAL: Negative for fever or chills or weight loss. HEENT: Positive for a recent fall where he tripped over a branch in the yard sustaining a contusion to his left forehead and his left eye, but no concussion or head trauma. CARDIAC: As above. PULMONARY: Negative for cough or shortness of breath. GASTROINTESTINAL: Negative for change in bowels. GENITOURINARY: No urinary symptoms. MUSCULOSKELETAL: Arthritic related aches and pains. No acute joint pain. NEUROLOGIC: No concussion symptoms. PHYSICAL EXAMINATION: VITAL SIGNS: He has been somewhat hypertensive since admission, but otherwise vitals have been unremarkable. GENERAL: He is in no acute distress. HEENT: He is wearing glasses. He does have a contusion to his left forehead and a bruising under his left eye. Conjunctivae are clear. Ocular muscles are intact. There is no bony tenderness of the head. NECK: Supple. HEART: Regular rate and rhythm. LUNGS: Clear to auscultation. ABDOMEN: Soft, nondistended, nontender. EXTREMITIES: No clubbing, cyanosis or edema. NEUROLOGIC: Gait is normal. Strength is normal. No focal neurologic signs are present. SKIN: Not showing any other bruising or contusions. LABORATORY DATA: CBC is unremarkable. Coags unremarkable. Chemistry showed an elevated troponin of 0.168, though dropped to 0.149. His proBNP is slightly elevated at 2372 on admission. Glucose was 117. Urinalysis unremarkable. Chest x-ray showed no radiographic evidence of acute disease. ASSESSMENT: Chest pain with abnormal EKG and hypertension. PLAN: He is admitted. Cardiology seen him. He was taken to the laboratory aide. W Yoni WALL MD DR: CRISTELA/nella JOB#: [id number] / [id number]
== END 2018-06-25 15:15 | disposition home or self-care (01) | DRG 286 ==
LOC: ER 07:26 → 2 SOUTH 09:54
PROVIDERS: ADMIT Family Medicine; ATTEND Family Medicine
PROC: B2111ZZ Fluoroscopy of Multiple Coronary Arteries using Low Osmolar Contrast (ICD-10-PCS; principal; 2018-06-24)
DX: I24.8 Other forms of acute ischemic heart disease (principal); I50.31 Acute diastolic (congestive) heart failure; I42.9 Cardiomyopathy, unspecified; E11.9 Type 2 diabetes mellitus without complications; E78.00 Pure hypercholesterolemia, unspecified; E78.5 Hyperlipidemia, unspecified; F41.9 Anxiety disorder, unspecified; G25.81 Restless legs syndrome; G47.33 Obstructive sleep apnea (adult) (pediatric); M19.90 Unspecified osteoarthritis, unspecified site; F17.210 Nicotine dependence, cigarettes, uncomplicated; S00.83XA Contusion of other part of head, initial encounter; W01.0XXA Fall on same level from slipping, tripping and stumbling without subsequent striking against object, initial encounter; Y93.89 Activity, other specified; Y92.098 Other place in other non-institutional residence as the place of occurrence of the external cause; Y99.8 Other external cause status; Z82.49 Family history of ischemic heart disease and other diseases of the circulatory system; Z83.3 Family history of diabetes mellitus; Z79.899 Other long term (current) drug therapy; I11.0 Hypertensive heart disease with heart failure
CPT/HCPCS: 36415; 71045; 80048; 80076; 81001; 83605; 83690; 83880; 84484; 85025; 85610; 85730; 93005; 93306; 93454; 99152; 99153; C1769; C1892; J1644; J1650; J2250; J3010; J3490; J7030; Q9967; 99285-25

== ENCOUNTER → 2018-11-29 | Outpatient (CLI) | payer MEDICARE, OTHER ==
[~2018-11-29] MED LIST changes: +CARV6.2511 PO; +FURO20TA3 PO; +LISI-130 PO
--- NOTE | 2018-11-29 11:12 | KCIC ---
EXAMINATION: Magnetic resonance imaging (MRI) of the lumbar spine without contrast 11/29/2018 9:30 AM HISTORY: Lumbar stenosis TECHNIQUE: Multiplanar multi-weighted MRI of the lumbar spine was performed without intravenous contrast using the standard lumbar spine protocol. Contrast information: None administered. COMPARISON: MRI lumbar spine 01/31/2016 FINDINGS: There is grade 1 anterolisthesis of L5 on S1 with chronic appearing bilateral L5 pars defects. There is mild disc height loss at L2-L3 and L3-L4. Vertebral body heights are maintained. Marrow signal intensity is normal in all sequences. Conus medullaris remains at L1. Distal spinal cord signal intensity is normal in all sequences. Simple appearing left renal cortical cysts are identified measuring up to 4.1 cm. There is aneurysm of the infrarenal abdominal aorta which is only partially profiled measuring up to 2.5 cm. Visualized portions of the sacrum appear intact. There is patchy sclerosis involving the medial aspect of the left S1 vertebral body without associated edema. Consideration may be given for a bone island. L1-L2: Disc is normal in configuration. No significant facet arthropathy. No neuroforaminal or spinal canal stenosis. Findings are stable. L2-L3: There is a disc bulge with left far lateral disc protrusion with mild progression since prior examination. There is mild facet arthropathy. Mild bilateral neuroforaminal stenosis. No spinal canal stenosis. L3-L4: There is a moderate disc bulge with left far lateral disc protrusion. There is moderate right and mild left facet arthropathy. There is moderate bilateral neuroforaminal stenosis. Mild spinal canal stenosis, exacerbated by epidural lipomatosis. L4-L5: There is mild circumferential disc bulge. There is moderate facet arthropathy with ligamentum flavum infolding. There is mild left neuroforaminal stenosis. No spinal canal stenosis. L5-S1: There is a mild to moderate disc bulge. There is mild to moderate facet arthropathy. Mild to moderate bilateral neuroforaminal stenosis, left greater than right. No spinal canal stenosis. IMPRESSION: 1. Mild degenerative changes of the lumbar spine, as described in detail above. Linings appear progressed at L2-L3 with increase in size of a left far lateral disc protrusion. Stable left far lateral disc protrusion at L3-L4. 2. Chronic anterolisthesis of L5 on S1 with chronic appearing bilateral L5 pars defects. Electronically signed by: Treva Gordon MD (11/29/2018 11:09 AM) [id number]
== END | disposition home or self-care (01) ==
LOC: KCIC MRI 11-28 09:01
PROVIDERS: ATTEND Family Medicine
DX: M47.816 Spondylosis without myelopathy or radiculopathy, lumbar region (principal); M51.26 Other intervertebral disc displacement, lumbar region; M48.07 Spinal stenosis, lumbosacral region; M43.17 Spondylolisthesis, lumbosacral region; M46.86 Other specified inflammatory spondylopathies, lumbar region
CPT/HCPCS: 72148

== ENCOUNTER → 2018-12-01 | Outpatient (CLI) | payer MEDICARE, OTHER ==
[~2018-12-01] MED LIST changes: +BUPIVACAINE MPF 0.25% 10 ML VIAL. ONE; +IOHEXOL 180 MG/ML 10 ML VIAL. ONE; +methylPREDNISolone ACETATE 80 MG/ML VIAL. ONE
--- NOTE | 2018-12-01 10:14 | PAIN ---
DATE OF SERVICE: 12/01/2018 PROGRESS NOTE FOR PAIN CLINIC DIAGNOSES: Lumbar radiculopathy with lumbar spinal stenosis, lumbar degenerative disk disease. HISTORY OF PRESENT ILLNESS: The patient is a 73-year-old male who returns for followup, last seen 10/26/2017. The patient had a lumbar transforaminal injection at the L5-S1 level on the left with near 100% improvement until the last month or so, the pain began to return in the low back, left lower extremity, posterior gluteus, posterior thigh, posterior calf; worse with walking, standing, changing positions; better with sitting or lying down. Initially, he was increasing his activity, distance walking, doing work activities, household activities, traveling with greater ease and comfort until the last few weeks, the pain is beginning to return, again worse with standing and walking. The patient reports still better at night, does not awaken from sleep with lying down. The patient reports pain over the last week at its worst, 8 on a scale of 10, average at 8 and at its least 6-8 today. The patient reports no new motor or sensory deficits, no new bowel or bladder incontinence. The patient did have a new MRI scan, which we reviewed with him today as well. PHYSICAL EXAMINATION: VITAL SIGNS: The patient's blood pressure 197/78, pulse 75, respirations 18, temperature 98.1 degrees Fahrenheit, height is 5 feet 8 inches, weight is 215 pounds. GENERAL: The patient is awake, alert, oriented, appropriate, very pleasant demeanor. HEENT: Shows normocephalic, atraumatic. Extraocular movements are intact and symmetrical. Oral cavity: Mucous membranes moist and pink. Dentition intact. NECK: Shows anterior throat supple without palpable lymphadenopathy noted. Swallow reflex symmetrical. CHEST: Shows normal on inspection. Breath sounds clear to auscultation bilaterally. HEART: Shows S1, S2 clear. No murmurs auscultated. ABDOMEN: Obese, soft, nontender, nondistended. No palpable organomegaly is noted. No rebound or guarding demonstrated. BACK: Shows spine grossly in the midline. Normal appearing thoracic kyphosis and lumbar lordotic curvature. Lumbar paraspinous muscle shows symmetrical on inspection, on palpation shows some moderate tenderness diffusely, but only diffusely without significant radiation. EXTREMITIES: The patient's lower extremities show deep tendon reflexes at 1+ in the patellar and tendo calcaneus tendons are equal. Motor exam is strong with 5/5 dorsiflexion, extension, quadriceps and hamstring flexion. Peripheral pulses are 1+ posterior tibia. No peripheral edema is noted bilaterally. Options were discussed with the patient. The patient's old chart was reviewed as his current medication regimen updated. Current review of systems updated today as well. We will proceed with a left-sided L5-S1 transforaminal injection with fluoroscopic guidance. Risks were again discussed including, but not limited to bleeding, infection, possibility of epidural hematoma, subsequent neurologic compromise, dural puncture, headaches, spinal cord and/or nerve damage, side effects of steroid medication, exposure to fluoroscopy, potential injection of the vertebral artery at that level and permanent ischemic damage as well as poor results regarding pain control. The patient understands and wished to proceed. The patient will return to clinic in approximately 2 weeks for followup. He was counseled on return appointment, activity level and side effects to be aware of. DIAGNOSES: Lumbar radiculopathy with lumbar spinal stenosis, lumbar degenerative disk disease. PROCEDURE: Left-sided L5-S1 transforaminal injection using C-arm fluoroscopic guidance under sterile prep and drape using local anesthetic. MEDICATION INJECTED: The patient received a total of 80 mg Depo-Medrol plus 2 mL of 0.25% bupivacaine and 1.5 mL of contrast with a good negative aspiration throughout the injection. Also, good contrast spread medially into the epidural space as well as laterally along the left L5-S1 nerve root without uptake on digital subtraction. CONDITION AT DISCHARGE: Stable. The patient tolerated the procedure well, had no complications. REECE CONLEY MD DR: MONSERRAT/nella JOB#: [id number] / [id number]
== END ==
LOC: PNCL 07:27
PROVIDERS: ATTEND Anesthesiology
DX: M48.061 Spinal stenosis, lumbar region without neurogenic claudication (principal); M51.16 Intervertebral disc disorders with radiculopathy, lumbar region
CPT/HCPCS: 64483; J1040; J3490; Q9965; 64493; 64494

== ENCOUNTER → 2019-01-02 | Outpatient (CLI) | payer MEDICARE, OTHER ==
[~2019-01-02] MED LIST changes: +methylPREDNISolone ACETATE 40 MG/ML VIAL. ONE
--- NOTE | 2019-01-02 16:46 | PAIN ---
DATE OF SERVICE: 01/02/2019 PROGRESS NOTE FOR PAIN CLINIC DIAGNOSES: Lumbar radiculopathy with lumbar spinal stenosis, lumbar degenerative disk disease. HISTORY OF PRESENT ILLNESS: The patient is a 73-year-old male who returns for followup status post transforaminal injection, left L5-S1, most recently 12/01. The patient did very well with about 50% improvement in his left leg pain. The patient reports the pain is returning now posterior gluteus, posterior thigh, posterior calf, lateral calf and posterior calf on the left. The patient reports it is worse with walking, standing, changing positions. Initially, he was increasing his activity with distance walking, also doing work activities, household activities, traveling with greater ease and comfort, now the pain is returning. Describes as radiating, sometimes burning, aching and tight. The patient reports it is an 8 on a scale of 10 at its worst, over the past week 6 on average, 5 at its least and is a 5 today. The patient reports no new motor or sensory deficits, no new bowel or bladder incontinence or other complaints. PHYSICAL EXAMINATION: VITAL SIGNS: Blood pressure is 156/82, pulse 66, respirations 18, temperature 97.6. Weight is 213 pounds. GENERAL: The patient is awake, alert, oriented, appropriate, very pleasant demeanor. HEENT: Shows normocephalic, atraumatic. Extraocular movements are intact and symmetrical. Oral cavity: Mucous membranes moist and pink. Dentition is intact. NECK: Shows anterior throat supple without palpable lymphadenopathy noted. Swallow reflex symmetrical. CHEST: Shows normal on inspection. Breath sounds clear to auscultation bilaterally. HEART: Shows S1, S2 clear. No murmurs auscultated. ABDOMEN: Soft, nontender, nondistended. No palpable organomegaly is noted. No rebound or guarding demonstrated. BACK: Shows spine grossly in the midline. Normal-appearing thoracic kyphosis, some minor flattening of lumbar lordotic curvature. Lumbar paraspinous muscle shows symmetrical on inspection, on palpation shows some moderate tenderness diffusely, but only diffusely without radiation. The patient has good rotational motion of the lumbar spine with good rotation laterally as well as extension and flexion. EXTREMITIES: The patient's lower extremities show deep tendon reflexes at 1+ in the patellar and tendo calcaneus tendons are equal. Motor exam is strong with 5/5 dorsiflexion, extension, quadriceps and hamstring flexion, symmetrical and even. Options were discussed with the patient. The patient's old chart was reviewed as his current medication regimen updated. Current review of systems updated today as well. We will proceed with a left-sided L5-S1 transforaminal injection today with fluoroscopic guidance. Risks were again discussed including, but not limited to bleeding, infection, possibility of epidural hematoma, subsequent neurological compromise, dural puncture, headaches, spinal cord and/or nerve damage, side effects of steroid medication, potential injection of the vertebral artery at that level and permanent ischemic damage as well as poor results regarding pain control. The patient understands and wished to proceed. The patient will return to clinic in approximately 2 weeks for followup. He was counseled as to return appointment, activity level and side effects to be aware of. DIAGNOSES: Lumbar radiculopathy with lumbar spinal stenosis, lumbar degenerative disk disease. PROCEDURE: Lumbar epidural steroid injection, lumbar transforaminal injection at L5-S1 level on the left using sterile prep and drape, using local anesthetic and C-arm fluoroscopic guidance, both AP, lateral and oblique views. MEDICATION INJECTED: A total of 2 mL of 0.25% bupivacaine and 80 mg Depo-Medrol as well as 1.5 mL of Isovue with good spread medially into the epidural space and laterally along the nerve root, no uptake noted with digital subtraction. CONDITION AT DISCHARGE: Stable. The patient tolerated procedure well, had no complications. REECE CONLEY MD DR: MONSERRAT/nella JOB#: [id number] / [id number]
== END ==
LOC: PNCL 07:45
PROVIDERS: ATTEND Anesthesiology
DX: M51.16 Intervertebral disc disorders with radiculopathy, lumbar region (principal); M48.061 Spinal stenosis, lumbar region without neurogenic claudication
CPT/HCPCS: 64483; J1040; J3490; Q9965; J1030

== ENCOUNTER → 2019-07-31 | Outpatient (CLI) | payer MEDICARE ==
[~2019-07-31] MED LIST changes: -BUPIVACAINE MPF 0.25% 10 ML VIAL. ONE; -IOHEXOL 180 MG/ML 10 ML VIAL. ONE; +IOHEXOL 240 MG/ML 50ML VIAL. PO ONE; +IOHEXOL 300 MG/ML 100ML VIAL. IV ONE; -ROPI1TAB2 PO; +ROPI1TAB4 PO; -methylPREDNISolone ACETATE 40 MG/ML VIAL. ONE; -methylPREDNISolone ACETATE 80 MG/ML VIAL. ONE
[2019-07-31 09:04] LABS: CREATININE 1.3 mg/dL (0.7-1.3); GFR 54.4
--- NOTE | 2019-07-31 09:51 | RAD ---
EXAM: CT Abdomen and Pelvis with IV contrast INDICATION: Epigastric pain and bloating. TECHNIQUE: Multi-detector row CT images were acquired from the lung bases through the abdomen and pelvis with the use of IV contrast. Sagittal and coronal images were acquired from the transaxial data. All CT scans performed at this facility utilize dose optimization techniques as appropriate to the exam, including the following: Automated exposure control and adjustment of the mA and/or KV according to patient size (this includes techniques or standardized protocols for targeted exams where dose is indication/reason for exam). IV CONTRAST: Administered ORAL CONTRAST: Administered COMPARISON: 07/10/[address] with oral and IV contrast. FINDINGS: LOWER CHEST: Unremarkable LIVER: Diffuse fatty infiltration of liver. BILIARY SYSTEM: Gallbladder is unremarkable. Bile ducts are not dilated. PANCREAS: Unremarkable SPLEEN: Unremarkable ADRENALS: Unremarkable KIDNEYS & URETERS: Right kidney shows a 10 mm calcified stone of the right renal pelvis without associated hydronephrosis, hydroureter or delay in the right nephrogram. Left kidney shows a slightly larger partially exophytic 5 cm cyst that measures water density and requires no additional follow-up. BLADDER: Unremarkable REPRODUCTIVE ORGANS: Unremarkable GASTROINTESTINAL: The stomach and small bowel are unremarkable. Oral contrast opacifies the colon up to the splenic flexure after which thereafter, diffuse spasm of the large bowel is present with moderate paracolic mesenteric hyperemia. Scattered colonic diverticuli are also noted most conspicuously in the sigmoid colon. The appendix is normal. MESENTERY/PERITONEUM/RETROPERITONEUM: Unremarkable VASCULAR: Infrarenal abdominal aortic ectasia remains present measuring up to 2.9 cm AP by 2.8 cm transverse (as measured on axial image 49 of series 3). This is not significantly changed in the interval. LYMPH NODES: No adenopathy OSSEOUS & SOFT TISSUES: Chronic bilateral L5 pars defects with disc degenerative change and minimal anterolisthesis at the lumbosacral junction is present. Intramuscular lipoma in the right tensor fascia elif. IMPRESSION: 1. Acute left-sided colitis without findings of obstruction, perforation or abscess formation. 2. Nonobstructing 1 cm stone in the right renal pelvis. 3. Atherosclerosis with ectasia of the infrarenal abdominal aorta to 2.9 cm. No findings of aortic leak, inflammation or rupture. 4. These hepatic steatosis. Electronically signed by: Leticia Maria MD (07/31/2019 9:49 AM) [id number]
== END | disposition home or self-care (01) ==
LOC: CT 07:55
PROVIDERS: ATTEND Internal Medicine Gastroenterology
DX: K76.0 Fatty (change of) liver, not elsewhere classified (principal); N28.1 Cyst of kidney, acquired; N20.0 Calculus of kidney; D17.9 Benign lipomatous neoplasm, unspecified; I77.811 Abdominal aortic ectasia; K51.50 Left sided colitis without complications; R68.89 Other general symptoms and signs
CPT/HCPCS: 36415; 74177; 82565; 84520; Q9966; Q9967

== ENCOUNTER → 2019-08-24 | Outpatient (CLI) | payer MEDICARE ==
[~2019-08-24] MED LIST changes: +BUPIVACAINE MPF 0.25% 10 ML VIAL. ONE; +IOHEXOL 180 MG/ML 10 ML VIAL. ONE; -IOHEXOL 240 MG/ML 50ML VIAL. PO ONE; -IOHEXOL 300 MG/ML 100ML VIAL. IV ONE; +methylPREDNISolone ACETATE 80 MG/ML VIAL. ONE
--- NOTE | 2019-08-24 14:01 | PAIN ---
DATE OF SERVICE: 08/24/2019 PROGRESS NOTE FOR PAIN CLINIC DIAGNOSES: Lumbar radiculopathy with lumbar spinal stenosis, lumbar degenerative disk disease. HISTORY OF PRESENT ILLNESS: The patient is a 73-year-old male who returns for followup status post left L5-S1 transforaminal injections, last seen 01/02/2019. Patient did very well with this with about a 75% improvement initially, now about 50% improvement overall. The patient reports pains are returning now over the past 2 months or so in the low back, left lower extremity, posterior gluteus, posterior thigh and posterior calf. The patient reports it is a 6 on a scale of 10 at its worst over the past week, 6 on average and 4 at its least and is a 6 today. The patient reports it is worse with walking, standing, changing positions, better with sitting or lying down, but does awaken him from sleep now over the past few weeks about every 5 hours. The patient reports no loss of motor function, but significant pain with activity. Initially, he was doing much better with distance walking, doing household activities until about the past 2 months. The patient reports no new motor or sensory deficits, no new bowel or bladder incontinence. The patient describes the pain as sharp and aching in the low back, shooting and burning at times in the leg. PHYSICAL EXAMINATION: VITAL SIGNS: The patient's blood pressure is 178/95, pulse 68, respirations 16, temperature 97.6 degrees Fahrenheit, height is 5 feet 8 inches and weight is 226 pounds. GENERAL: The patient is awake, alert, oriented, appropriate, very pleasant demeanor. HEENT: Shows normocephalic, atraumatic. Extraocular movements are intact and symmetrical. Oral cavity shows mucous membranes moist and pink. Dentition is intact. NECK: Shows anterior throat supple without palpable lymphadenopathy noted. Swallow reflex symmetrical. CHEST: Shows normal on inspection. Breath sounds are clear to auscultation bilaterally. HEART: Shows S1, S2 clear. No murmurs auscultated. ABDOMEN: Soft, nontender, nondistended. BACK: Shows spine grossly in the midline. Normal appearing thoracic kyphosis and lumbar lordotic curvature is slightly flattened. Lumbar paraspinous muscle shows symmetrical on inspection, on palpation shows some moderate tenderness diffusely bilaterally, but only diffusely without significant radiation. The patient has good rotational motion of lumbar spine, both laterally as well as extension and flexion without significant increase in pain. EXTREMITIES: Lower extremities show deep tendon reflexes 1+ in the patellar and tendo calcaneus tendons. Motor exam is 5/5 with dorsiflexion, extension, quadriceps and hamstring flexion symmetrical. Peripheral pulses are 1+ posterior tibial without peripheral edema. Options were discussed with the patient. The patient's old chart was reviewed as his current medication regimen updated. Current review of systems updated today as well. We will proceed with a lumbar L5-S1 transforaminal injection on the left. Risks were again discussed including, but not limited to bleeding, infection, possibility of epidural hematoma, subsequent neurological compromise, dural puncture, headaches, spinal cord and/or nerve damage, side effects of steroid medication, potential injection of the vertebral artery at that level and permanent ischemic damage as well as poor results regarding pain control. The patient understands and wished to proceed. The patient will return to clinic in approximately 2 weeks for followup, was counseled on return appointment, activity level and side effects to be aware of. DIAGNOSES: Lumbar radiculopathy with lumbar spinal stenosis, lumbar degenerative disk disease. PROCEDURE: Lumbar L5-S1 left transforaminal injection using C-arm fluoroscopic guidance under sterile prep and drape using local anesthetic. MEDICATION INJECTED: A total of 80 mg of Depo-Medrol and 2 mL of 0.25% bupivacaine after negative aspiration using a Hanna styletted needle with good spread of the contrast 1.5 mL medially into the epidural space as well as laterally along the nerve roots without washout and with no uptake on digital subtraction. CONDITION AT DISCHARGE: Stable. The patient tolerated the procedure well, had no complications. REECE CONLEY MD DR: MONSERRAT/nella JOB#: [id number] / [id number]
== END | disposition home or self-care (01) ==
LOC: PNCL 12:20
PROVIDERS: ATTEND Anesthesiology
DX: M51.16 Intervertebral disc disorders with radiculopathy, lumbar region (principal); M48.061 Spinal stenosis, lumbar region without neurogenic claudication; Z98.890 Other specified postprocedural states
CPT/HCPCS: 64483; J1040; J3490; Q9965

== ENCOUNTER → 2019-08-29 | Outpatient (CLI) | payer MEDICARE ==
[~2019-08-29] MED LIST changes: -BUPIVACAINE MPF 0.25% 10 ML VIAL. ONE; -IOHEXOL 180 MG/ML 10 ML VIAL. ONE; -methylPREDNISolone ACETATE 80 MG/ML VIAL. ONE
--- NOTE | 2019-08-29 11:13 | RAD ---
Chest, PA and Lateral: Technique: PA and lateral views of the chest were obtained. History: Shortness of breath. Comparison: 06/24/2018. Findings: The heart size grossly appears unremarkable. Mild bibasilar lung airspace opacities likely atelectasis or infiltrates IMPRESSION: 1. Mild bibasilar lung airspace opacities likely atelectasis or infiltrates. Follow-up to resolution. Electronically signed by: Skinny Cano MD (08/29/2019 11:10 AM) [id number]
== END | disposition home or self-care (01) ==
LOC: RAD 10:21
PROVIDERS: ATTEND Family Medicine
DX: R06.02 Shortness of breath (principal)
CPT/HCPCS: 71046

== ENCOUNTER → 2019-09-28 | Outpatient (CLI) | payer MEDICARE ==
[~2019-09-28] MED LIST changes: +MULT-445 PO; -MULT1TAB52 PO
--- NOTE | 2019-09-28 13:01 | CARD ---
MR#: [id number] Date of Study: 09/28/2019 Ordering Physician: TRACIE PRINCE, Referring Physician: TRACIE PRINCE, Tech: Rosy Kraus APPROVED REPORT EXAM: Two-dimensional and M-mode echocardiogram with Doppler and color Doppler. Other Information Quality : FairHR: 64bpm INDICATION Cardiomyopathy RISK FACTORS Hypertension Smoking 2D DIMENSIONS RVDd3.7 (2.9-3.5cm)Left Atrium(2D)3.9 (1.6-4.0cm) IVSd1.4 (0.7-1.1cm)Aortic Root(2D)3.3 (2.0-3.7cm) LVDd5.6 (3.9-5.9cm)LVOT Diameter2.2 (1.8-2.4cm) PWd1.3 (0.7-1.1cm)LVDs3.4 (2.5-4.0cm) FS (%) 38.4 %SV102.7 ml LVEF(%)68.0 (>50%) Aortic Valve AoV Peak Chevy.147.0cm/sAoV VTI26.6cm AO Peak GR.8.6mmHgLVOT Peak Chevy.103.6cm/s LVOT VTI 22.36cmAO Mean GR.4mmHg CM (VMAX)1.50vv2KYP (VTI)3.13cm2 AI P 1/2 [id number] Mitral Valve MV E Thdmnjjo238.1cm/sMV DECEL LSVP305bk MV A Ftpqxlat321.8cm/sMV WUS01jo E/A Ratio1.4MVA (PHT)3.94cm2 TDI E/Lateral E'29.9E/Medial E'33.8 Pulmonary Valve PV Peak Lkrttjuc92.1cm/sPV Peak Grad.3mmHg Tricuspid Valve TR P. Oxrwnhzh292ta/sRAP LPDYBQFM5qrHe TR Peak Gr.68ggHuJTDX49alHs LEFT VENTRICLE The left ventricle is normal size. There is mild to moderate concentric left ventricular hypertrophy. The left ventricular systolic function is normal. The Ejection Fraction is 55%. There is normal LV s egmental wall motion. RIGHT VENTRICLE The right ventricle is normal size. There is normal right ventricular wall thickness. The right ventr icular systolic function is normal. ATRIA The left atrium size is normal. The right atrium size is normal. The interatrial septum is intact wit h no evidence for an atrial septal defect or patent foramen ovale as noted on 2-D or Doppler imaging. AORTIC VALVE The aortic valve is thickened but opens well. Doppler and Color Flow revealed mild aortic regurgitati on. There is no significant aortic valvular stenosis. MITRAL VALVE The mitral valve is normal in structure and function. There is no evidence of mitral valve prolapse. There is no mitral valve stenosis. Doppler and Color-flow revealed trace mitral regurgitation. TRICUSPID VALVE The tricuspid valve is normal in structure and function. Doppler and Color Flow revealed trace tricus pid regurgitation with an estimated PAP of 27 mmHg. There is no tricuspid valve stenosis. PULMONIC VALVE The pulmonic valve is not well visualized. Doppler and Color Flow revealed no pulmonic valvular regur gitation. GREAT VESSELS The aortic root is normal in size. The ascending aorta is borderline dilated. The IVC is normal in si ze and collapses >50% with inspiration. PERICARDIAL EFFUSION There is no evidence of significant pericardial effusion. Critical Notification Critical Value: No <Conclusion> The left ventricular systolic function is normal. The Ejection Fraction is 55%. There is normal LV segmental wall motion. Mild aortic regurgitation. Trace mitral regurgitation. Trace tricuspid regurgitation with an estimated PAP of 27 mmHg. There is no evidence of significant pericardial effusion. Signed by : Tracie Prince, Electronically Approved : 09/28/2019 13:00:55
== END | disposition home or self-care (01) ==
LOC: ECHO 10:16
PROVIDERS: ATTEND Internal Medicine Cardiovascular Disease
DX: I35.1 Nonrheumatic aortic (valve) insufficiency (principal); I42.9 Cardiomyopathy, unspecified; I51.7 Cardiomegaly; F17.200 Nicotine dependence, unspecified, uncomplicated
CPT/HCPCS: 93306

== ENCOUNTER → 2019-09-28 | Outpatient (CLI) | payer MEDICARE ==
--- NOTE | 2019-09-28 15:18 | RAD ---
PA and lateral chest radiographs 09/28/2019 CLINICAL HISTORY: Pneumonia. PA and lateral digital radiographs of the chest were obtained. Comparison study is dated 08/29/2019. The cardiac silhouette is borderline enlarged. The thoracic aorta is tortuous. Atherosclerotic calcification of the thoracic aorta is seen. The subsegmental atelectasis and/or infiltrate seen on the previous examination has resolved. No acute pulmonary infiltrate is seen. No pleural effusion or pneumothorax is noted. The osseous structures are unchanged. IMPRESSION: Interval resolution of the bilateral lower lobe subsegmental atelectasis and/or infiltrate. No acute pulmonary infiltrate is seen. Electronically signed by: Duane Gonzalez MD (09/28/2019 3:15 PM) [id number]
== END | disposition home or self-care (01) ==
LOC: RAD 11:16
PROVIDERS: ATTEND Family Medicine
DX: J18.9 Pneumonia, unspecified organism (principal); I70.0 Atherosclerosis of aorta; Q25.46 Tortuous aortic arch
CPT/HCPCS: 71046

== ENCOUNTER → 2020-04-01 | Outpatient (CLI) | payer MEDICARE ==
[~2020-04-01] MED LIST changes: +AMLO-187 PO; -AMLO10TA8 PO
--- NOTE | 2020-04-01 10:36 | KCIC ---
MRI BRAIN WO Date: 04/01/2020 8:21 AM Indication: Reason: BALANCE PROBLEMS / Spl. Instructions: No repeats, pt having trouble breathing ly ing down. / History: New unsteady gait and balance issues x 1 month. No trauma. Comparison: None. Technique: Multiplanar multisequence MRI of the brain was performed without intravenous contrast usin g the standard protocol. Findings: No acute infarct. No acute or chronic hemorrhage. Mild ex vacuo dilatation of the lateral ventricles, not out of proportion with the degree of cerebral volume loss. Moderate scattered FLAIR hyperintensi ties in the subcortical and periventricular deep white matter, a nonspecific finding, most commonly s een with chronic small vessel ischemic disease. Moderate cerebral volume loss. The scalp and calvarium are normal. The pituitary and sella are normal. No Chiari malformation. Mild incompletely characterized degenerative spondylosis of the visualized upper cervical spine. The visualized orbits and globes are normal. The visualized paranasal sinuses are clear. The mastoid air cells are clear. Normal flow voids within the vertebral, basilar, and internal carotid arteries indicating patency. IMPRESSION: 1. No acute infarct, acute hemorrhage, or mass. 2. Moderate chronic small vessel ischemic disease and moderate cerebral volume loss. Electronically signed by: Juan Tinoco MD (04/01/2020 10:34 AM) [id number]
== END ==
LOC: KCIC MRI 08:17
PROVIDERS: ATTEND Nurse Practitioner Family
DX: G93.89 Other specified disorders of brain (principal); M47.812 Spondylosis without myelopathy or radiculopathy, cervical region; R26.89 Other abnormalities of gait and mobility
CPT/HCPCS: 70551

== ENCOUNTER → 2020-06-10 | Outpatient (CLI) | payer MEDICARE ==
[~2020-06-10] MED LIST changes: +LISI10TA16 PO; -LISI10TA2 PO
--- NOTE | 2020-06-10 12:31 | KCIC ---
EXAM: CT chest low dose lung cancer screening. HISTORY: Cigarette smoking history. TECHNIQUE: Computed tomographic images of the chest were obtained without contrast. Multiplanar refor matting was performed. *One or more of the following individualized dose reduction techniques were utilized for this examina tion: 1. Automated exposure control. 2. Adjustment of the mA and/or kV according to patient size. 3. Use of iterative reconstruction technique. COMPARISON: None. FINDINGS: The heart is normal in size. The aorta is normal in caliber. There is calcified atheroscler otic plaque involving the aorta and coronary arteries. There are few calcified mediastinal granulomas . No pathologically enlarged noncalcified lymph node is seen. There is no pneumothorax or pleural eff usion. There is no infiltrate. There are scattered calcified granulomas within both lungs. This includes a cluster suspected granulo mas within the medial right upper lobe. There is a 4 mm noncalcified nodule within the anterior left upper lobe disease series 4, image 148). There is a 3 mm noncalcified nodule within the medial right lung apex (series 4, image 49). There is linear scarring within the lingula and right middle lobe. Ev aluation of the lower lobes is limited due to motion. There is suspected hepatic steatosis. There are hepatic and splenic granulomas. There are degenerativ e changes involving the spine. There is no suspicious osseous lesion. IMPRESSION: 1. Bilateral upper lobe noncalcified pulmonary nodules measuring up to 4 mm. Lung RADS Category 2: 12 month follow-up is recommended. 2. Healed granulomas disease. Electronically signed by: Gena Hernández MD (06/10/2020 12:28 PM) [id number]
== END ==
LOC: KCIC CT 10:19
PROVIDERS: ATTEND Family Medicine
DX: Z12.2 Encounter for screening for malignant neoplasm of respiratory organs (principal); I50.42 Chronic combined systolic (congestive) and diastolic (congestive) heart failure; R91.1 Solitary pulmonary nodule; K76.0 Fatty (change of) liver, not elsewhere classified; I25.10 Atherosclerotic heart disease of native coronary artery without angina pectoris; F17.210 Nicotine dependence, cigarettes, uncomplicated
CPT/HCPCS: 71271

== ENCOUNTER → 2020-11-05 | Outpatient (CLI) | payer MEDICARE ==
--- NOTE | 2020-11-05 17:33 | CARD ---
MR#: [id number] Date of Study: 11/05/2020 Ordering Physician: TRACIE HERNANDEZ, Referring Physician: TRACIE HERNANDEZ, Tech: Rosy Kraus, [facility] APPROVED REPORT EXAM: Two-dimensional and M-mode echocardiogram with Doppler and color Doppler. Other Information Quality : AverageHR: 68bpm Technically limited study due to body habitus. INDICATION Cardiomyopathy RISK FACTORS Hypertension Diabetes Smoking 2D DIMENSIONS RVDd3.8 (2.9-3.5cm)Left Atrium(2D)2.8 (1.6-4.0cm) IVSd1.4 (0.7-1.1cm)Aortic Root(2D)3.7 (2.0-3.7cm) LVDd5.5 (3.9-5.9cm)LVOT Diameter2.4 (1.8-2.4cm) PWd1.3 (0.7-1.1cm)LVDs3.6 (2.5-4.0cm) FS (%) 34.3 %SV91.4 ml LVEF(%)62.7 (>50%) Aortic Valve AoV Peak Chevy.149.6cm/sAoV VTI28.1cm AO Peak GR.8.9mmHgLVOT Peak Chevy.99.7cm/s LVOT VTI 20.71cmAO Mean GR.5mmHg CM (VMAX)2.46ax8RCT (VTI)3.40cm2 AI P 1/2 [id number] Mitral Valve MV E Sqlkxncb22.0cm/sMV DECEL [id number] MV A Kpjujmop89.6cm/sMV E Mean Gr.2mmHg MV WER41eyY/A Ratio0.9 MVA (PHT)3.27cm2 TDI E/Lateral E'12.7E/Medial E'11.1 Pulmonary Valve PV Peak Sckrjmmo13.2cm/sPV Peak Grad.3mmHg Tricuspid Valve TR P. Elitaors043rf/sRAP DCSGJERQ3asXk TR Peak Gr.94ptUqDCMZ85qgBf LEFT VENTRICLE The left ventricle is normal size. There is moderate concentric left ventricular hypertrophy. The Eje ction Fraction is 50-55%. The left ventricular systolic function is normal and the ejection fraction is within normal range. There is normal LV segmental wall motion. Transmitral Doppler flow pattern is Grade II-pseudonormal filling dynamics. RIGHT VENTRICLE The right ventricle is normal size. There is normal right ventricular wall thickness. The right ventr icular systolic function is normal. ATRIA The left atrium size is normal. The right atrium size is normal. The interatrial septum is intact wit h no evidence for an atrial septal defect or patent foramen ovale as noted on 2-D or Doppler imaging. AORTIC VALVE The aortic valve is thickened but opens well. Doppler and Color Flow revealed mild aortic regurgitati on. There is no significant aortic valvular stenosis. Calculated aortic valve area is 3.62 cm2 with m aximum pressure gradient of 12 mmHg and mean pressure gradient of 7 mmHg. MITRAL VALVE The mitral valve is normal in structure and function. There is no evidence of mitral valve prolapse. There is no mitral valve stenosis. Doppler and Color-flow revealed trace mitral regurgitation. TRICUSPID VALVE The tricuspid valve is normal in structure and function. Doppler and Color Flow revealed trace tricus pid regurgitation with an estimated PAP of 22 mmHg. There is no tricuspid valve stenosis. PULMONIC VALVE The pulmonic valve is not well visualized. Doppler and Color Flow revealed trace pulmonic valvular re gurgitation. There is no pulmonic valvular stenosis. GREAT VESSELS The aortic root is normal in size. The ascending aorta is normal in size. The IVC is normal in size a nd collapses >50% with inspiration. PERICARDIAL EFFUSION There is no evidence of significant pericardial effusion. Critical Notification Critical Value: No <Conclusion> The Ejection Fraction is 50-55%. The left ventricular systolic function is normal and the ejection fr action is within normal range. There is normal LV segmental wall motion. Doppler and Color Flow revealed mild aortic regurgitation. Technically difficult study Signed by : Teddy Clemens, Electronically Approved : 11/05/2020 17:32:57
== END ==
LOC: ECHO 10:34
PROVIDERS: ATTEND Internal Medicine Cardiovascular Disease
DX: I35.1 Nonrheumatic aortic (valve) insufficiency (principal); I42.9 Cardiomyopathy, unspecified; I51.7 Cardiomegaly
CPT/HCPCS: 93306

== ENCOUNTER → 2020-11-28 | Outpatient (CLI) | payer MEDICARE ==
[~2020-11-28] MED LIST changes: +BUPIVACAINE MPF 0.25% 10 ML VIAL. ONE; +IOHEXOL 180 MG/ML 10 ML VIAL. ONE; +METF10007 PO; +methylPREDNISolone ACETATE 80 MG/ML VIAL. ONE
--- NOTE | 2020-11-28 10:32 | PDOC ---
Progress Note - Pain Clinic Date of Service: DOS: DATE: 11/28/20 TIME: 10:29 Diagnosis: Dx: Lumbar radiculopathy with lumbar spinal stenosis and lumbar degenerative disc disease History or Present Illness: HPI: 75-year-old male returns for follow-up status post left lumbar L5-S1 transforaminal injection with fluoroscopic guidance. Patient last seen August 24, 2019 patient did very well near 110 improvement until about 2 weeks ago patient reports pain began to return the low back into the left lower extremity posterior gluteus and thigh occasionally into the calf but patient reports he is trying to get ahead of the pain that is not quite to his baseline level patient reports is a 7 on scale 10 is worse over the past week 7 on average 6 its least and is a 6 today patient ports stabbing on and off intensity worse with walking standing worse with changing positions better with sitting or laying down gener ally is not awakening from sleep at night with the pain. Patient reports that he is recent been diagnosed with diabetes and we discussed this as he is not currently checking his blood sugar at home and is taking Metformin. We discussed the importance that he follow-up with his primary physician regarding routine checking of the diabetes with blood sugars as they would be affected by pain treatment with corticosteroids. Patient understands and agrees. Physical Exam: VS: Blood pressure is 140/72 pulse 80 respirations 18 temperature 97.9 F height is 5 feet 8 inches weight is 200 PE: PHYSICAL EXAMINATION: GENERAL: The patient is awake, alert, oriented, appropriate, very pleasant in demeanor HEENT: Shows normocephalic, atraumatic. Extraocular movements are intact and symmetrical. Oral cavity: Mucous membranes moist and pink. Dentition is intact. NECK: Shows anterior throat supple without palpable lymphadenopathy noted. Swallow reflex symmetrical. CHEST: Shows normal on inspection. Breath sounds are clear bilaterally, distant no rales rhonchi or wheezes auscultated. HEART: Shows S1, S2 clear. No murmurs auscultated. ABDOMEN: Soft, nontender, nondistended, obese. No palpable organomegaly is noted. BACK: Shows spine grossly in the midline. Normal-appearing cervical lordotic curvature. There is slightly increased thoracic kyphosis, some minor flattening of the lumbar lordotic curvature. Lumbar paraspinous muscles show symmetrical on inspection, on palpation shows some moderate tenderness diffusely throughout the upper, middle and lower distribution of the paraspinous muscles without specific trigger points, without radiation of pain. The patient has good rotational motion of the lumbar spine, both laterally as well as extension and flexion without significant difficulty. EXTREMITIES: Lower extremities show deep tendon reflexes 1+ in the patellar and tendo calcaneus tendons. Motor exam is 5 on a scale of 5 with right dorsiflexion, extension, quadriceps and hamstring flexion and 5/5 on the left. Peripheral pulses are 1+ posterior tibial. No peripheral edema is noted bilater ally. Lower extremities are warm and dry to touch, equal in color and appearance. SKIN: Shows warm and dry, good turgor. No edema. No sores, rashes or bruising throughout. Procedure: Procedure: Options were discussed with the patient. Patient chart reviews his current medication regimen updated current review of systems updated today as well. We will proceed with a left transforaminal L5-S1 steroid injection today with fluoroscopic guidance. Risks were discussed including but not limited to: Bleeding, infection, possibility of epidural hematoma and subsequent neurological compromise, dural puncture, headaches, spinal cord and/or nerve damage, potential injection into the vertebral artery at that level and permanent ischemic damage, side effects of steroid medication, and poor results regarding pain control. Patient understands and wished to proceed. Patient will return to the clinic in approximate 4 weeks for follow-up, was counseled as to return appointment activity level, and side effects be aware of. Medication Injected: Med Injected: Under sterile prep and drape patient was placed in prone position using C-arm fluoroscopic guidance to identify the L5-S1 distribution oblique and slightly cephalad angled C arm. The left L5-S1 target was identified and using lidocaine for anesthetizing the skin 22-gauge Hanna pencil point needle was then used to enter the skin and into the subcutaneous tissues using direct C-arm fluoroscopic guidance to guide the needle into the transforaminal aspect of the left L5-S1 vertebrae this was confirmed with lateral views showing the needle tip in the superior aspect of the paravertebral region. Aspiration was noted to be negative, -1.5 cc of contrast was then injected with good spread both medially into the epidural space as well as laterally along the nerve root without uptake and without distribution and uptake on digital subtraction. At this time, a solution containing 2 cc of 0.25% bupivacaine and 80 mg of Depo- Medrol was then injected. Needle was withdrawn and sterile bandage was applied. Patient tolerated procedure well had no immediate complications Condition at Discharge: Condition at Discharge: Condition at discharge stable, patient already the procedure well and had no complications. REECE CONLEY MD Nov 28, 2020 10:32
== END ==
LOC: PNCL 09:42
PROVIDERS: ATTEND Anesthesiology
DX: M51.16 Intervertebral disc disorders with radiculopathy, lumbar region (principal); M48.061 Spinal stenosis, lumbar region without neurogenic claudication
CPT/HCPCS: 64483; J1040; J3490; Q9965

== ENCOUNTER 2021-03-08 06:12 | Emergency (ER) | payer MEDICARE ==
[~2021-03-08] VITALS: Ht 172.7 cm; Wt 100.0 kg
[~2021-03-08 06:12] MED LIST changes: -BUPIVACAINE MPF 0.25% 10 ML VIAL. ONE; +CYCL10TA19 PO; -CYCL10TA2 PO; -IOHEXOL 180 MG/ML 10 ML VIAL. ONE; -methylPREDNISolone ACETATE 80 MG/ML VIAL. ONE
[2021-03-08 06:39] LABS: BASO # 0.1 x10^3/uL (0.0-0.2); BASO % 1 % (0-3); EOS # 0.2 x10^3/uL (0.0-0.7); EOS % 2 % (0-3); LYMPH # 1.1 x10^3/uL (1.0-4.8); LYMPH % 9 % (24-48); MEAN CORPUSCULAR HEMOGLOBIN 29 pg (25-35); MEAN CORPUSCULAR HGB CONC 33 g/dL (31-37); MEAN CORPUSCULAR VOLUME 89 fL (79-100); MONO # 0.9 x10^3/uL (0.0-1.1); MONO % 7 % (0-9); NEUT # 10.7 x10^3/uL (1.8-7.7); NEUT % 82 % (31-73); PLATELET COUNT 181 x10^3/uL (140-400); RED BLOOD COUNT 5.49 x10^6/uL (4.30-5.70); RED CELL DISTRIBUTION WIDTH 13.9 % (11.5-14.5)
[2021-03-08 06:51] LABS: CALCIUM 8.4 mg/dL (8.5-10.1); CREATININE 1.3 mg/dL (0.7-1.3); GFR 54.3
[2021-03-08 06:56] LABS: ALBUMIN 3.4 g/dL (3.4-5.0); ALBUMIN/GLOBULIN RATIO 1.1 (1.0-1.7); MAGNESIUM 2.2 mg/dL (1.8-2.4); TOTAL BILIRUBIN 0.7 mg/dL (0.2-1.0); TOTAL PROTEIN 6.5 g/dL (6.4-8.2)
--- NOTE | 2021-03-08 06:59 | RAD ---
EXAM: XR CHEST 1V 03/08/2021 6:42 AM CLINICAL INDICATION: Cough COMPARISON: Chest radiograph 09/28/2019 TECHNIQUE: AP upright view of the chest FINDINGS: The heart is normal in size. Lungs are adequately expanded. No consolidation, pleural effu cooper, or pneumothorax. No acute osseous abnormality. IMPRESSION: No acute cardiopulmonary abnormality. Electronically signed by: Marilyn Williamson MD (03/08/2021 6:56 AM) [facility]
--- NOTE | 2021-03-08 07:13 | PHYS DOC ---
Past Medical History Past Medical History: CHF, High Cholesterol, Hypertension Additional Past Medical Histor: rls Past Surgical History: Other Additional Past Surgical Histo: Bilateral hernia,Tumor removed from stomach Smoking Status: Current Every Day Smoker Alcohol Use: Occasionally Drug Use: None General Adult EDM: Chief Complaint: DIARRHEA HPI: HPI: Patient is a 74 year old male with history of CHF, HTN, HLD, restless leg syndrome who presents with 1 week of cough, diarrhea, generalized fatigue. This morning was getting up to the restroom and was unable to make it to the bathroom, and was incontinent of stool. States that he had at least 5 loose stools overnight. Today has been nauseous and had one episode of vomiting. Denies any abdominal pain. States that he has been feeling slightly more short of breath, and feels like his stomach is slightly more swollen, where he typically holds onto fluid for CHF exacerbations. Denies orthopnea or chest pain. Denies lower extremity edema. Denies fevers or chills. Has received Covid vaccine and booster Denies Covid contacts. Denies any contacts with similar symptoms. Review of Systems: Review of Systems: Constitutional: Denies fever or chills. Reports generalized weakness. [] Eyes: Denies change in visual acuity. [] HENT: Denies nasal congestion or sore throat. [] Respiratory: Reports cough and mild shortness of breath Cardiovascular: Denies chest pain or edema. [] GI: Reports nausea, vomiting, diarrhea. Denies abdominal pain : Denies dysuria. [] Musculoskeletal: Denies back pain or joint pain. [] Integument: Denies rash. [] Neurologic: Denies headache, focal weakness or sensory changes. [] Endocrine: Denies polyuria or polydipsia. [] Lymphatic: Denies swollen glands. [] Psychiatric: Denies depression or anxiety. [] Heart Score: C/O Chest Pain: No Allergies: Allergies: Allergies Coded Allergies Type Severity Reaction Last Updated Verified No Known Drug Allergies 08/16/13 No Physical Exam: PE: Constitutional: Well developed, well nourished, no acute distress, non-toxic appearance. [] HENT: Nasal congestion apparent Neck: Normal range of motion, no tenderness, supple, no stridor. [] Cardiovascular:Heart rate regular rhythm, no murmur [] Lungs & Thorax: Bilateral breath sounds clear to auscultation. Frequent wet sounding cough. [] Abdomen: Bowel sounds normal, soft, no tenderness, no masses, no pulsatile masses. [] Skin: Warm, dry, no erythema, no rash. [] Back: No tenderness, no CVA tenderness. [] Extremities: No lower extremity edema Neurologic: Alert and oriented X 3, normal motor function, normal sensory function, no focal deficits noted. [] Psychologic: Affect normal, judgement normal, mood normal. [] Current Patient Data: Labs: Laboratory Tests Test 03/08/21 06:23 White Blood Count 13.0 x10^3/uL (4.0-11.0) H Red Blood Count 5.49 x10^6/uL (4.30-5.70) Hemoglobin 16.0 g/dL (13.0-17.5) Hematocrit 49.0 % (39.0-53.0) Mean Corpuscular Volume 89 fL (79-100) Mean Corpuscular Hemoglobin 29 pg (25-35) Mean Corpuscular Hemoglobin Concent 33 g/dL (31-37) Red Cell Distribution Width 13.9 % (11.5-14.5) Platelet Count 181 x10^3/uL (140-400) Neutrophils (%) (Auto) 82 % (31-73) H Lymphocytes (%) (Auto) 9 % (24-48) L Monocytes (%) (Auto) 7 % (0-9) Eosinophils (%) (Auto) 2 % (0-3) Basophils (%) (Auto) 1 % (0-3) Neutrophils # (Auto) 10.7 x10^3/uL (1.8-7.7) H Lymphocytes # (Auto) 1.1 x10^3/uL (1.0-4.8) Monocytes # (Auto) 0.9 x10^3/uL (0.0-1.1) Eosinophils # (Auto) 0.2 x10^3/uL (0.0-0.7) Basophils # (Auto) 0.1 x10^3/uL (0.0-0.2) Sodium Level 140 mmol/L (136-145) Potassium Level 4.0 mmol/L (3.5-5.1) Chloride Level 103 mmol/L (98-107) Carbon Dioxide Level 27 mmol/L (21-32) Anion Gap 10 (6-14) Blood Urea Nitrogen 12 mg/dL (8-26) Creatinine 1.3 mg/dL (0.7-1.3) Estimated GFR (Cockcroft-Gault) 54.3 BUN/Creatinine Ratio 9 (6-20) Glucose Level 165 mg/dL (70-99) H Calcium Level 8.4 mg/dL (8.5-10.1) L Magnesium Level 2.2 mg/dL (1.8-2.4) Total Bilirubin 0.7 mg/dL (0.2-1.0) Aspartate Amino Transferase (AST) 12 U/L (15-37) L Alanine Aminotransferase (ALT) 28 U/L (16-63) Alkaline Phosphatase 88 U/L (46-116) Troponin I High Sensitivity 16 ng/L (4-75) KH-Osu-K-Type Natriuretic Peptide 396 pg/mL (0-124) H Total Protein 6.5 g/dL (6.4-8.2) Albumin 3.4 g/dL (3.4-5.0) Albumin/Globulin Ratio 1.1 (1.0-1.7) Laboratory Tests 03/08/21 06:23 Laboratory Tests 03/08/21 06:23 Vital Signs: Vital Signs Date Time Temp Pulse Resp B/P (MAP) Pulse Ox O2 Delivery O2 Flow Rate FiO2 03/08/21 06:20 99.6 77 22 135/55 (81) 95 Room Air 99.6 EKG: EKG: Sinus rhythm. Left axis deviation. Inferior Q waves. T wave inversions in aVL. No significant ST depression or elevation. [] Radiology/Procedures: Radiology/Procedures: [] Impression: [facility] [address] [place], [place] [id number] IMAGING REPORT Signed PATIENT: AMARILYS SERVIN ACCOUNT: [id number] : 10/31/1946 LOCATION: ER AGE: 74 SEX: M EXAM STATUS: PRE ER ORD. PHYSICIAN: HA LALA MD REASON: cough PROCEDURE: CHEST AP ONLY EXAM: XR CHEST 1V 03/08/2021 6:42 AM CLINICAL INDICATION: Cough COMPARISON: Chest radiograph 09/28/2019 TECHNIQUE: AP upright view of the chest FINDINGS: The heart is normal in size. Lungs are adequately expanded. No consolidation, pleural effusion, or pneumothorax. No acute osseous abnormality. IMPRESSION: No acute cardiopulmonary abnormality. Electronically signed by: Matt Williamson MD (03/08/2021 6:56 AM) [facility] DICTATED and SIGNED BY: MATT WILLIAMSON MD DATE: 03/08/21 [id number] Course & Med Decision Making: Course & Med Decision Making Pertinent Labs and Imaging studies reviewed. (See chart for details) Patient is 74-year-old male presents with 1 week of diarrhea, generalized fatigue, cough. On arrival is afebrile, with reassuring vital signs. Heart rate 78. BP 138/73. Appears slightly ill on exam, but no apparent distress. No abdominal tenderness to suggest a surgical intra-abdominal process. Will not pursue any abd imaging. Most consistent with gastroenteritis. No fever, mucoid, or bloody stools to suggest invasive bacterial enteritis. Will test for Covid, c diff. Will check electrolytes, cell counts, UA. 0713 Rapid Covid negative. Mild leukocytosis. CMP largely unremarkable. UA uninfected. Patient was unable to provide a stool sample for C. difficile testing, however he has had no recent hospitalizations or antibiotics, making this less likely. He does feel safe returning home at this time. Asked him to please return to the emergency department if he does feel unsafe caring for himself at home. 1117 Dragon Disclaimer: Dragon Disclaimer: This electronic medical record was generated, in whole or in part, using a voice recognition dictation system. Departure Departure Impression: Primary Impression: Nausea vomiting and diarrhea Disposition: 01 HOME / SELF CARE / HOMELESS Condition: STABLE Referrals: KISHAN HUGHES MD (PCP) Additional Instructions: Your lab work and urine test were reassuring. Your Covid test was negative. Your chest x-ray was normal. There is no signs of strain on your heart. You likely have some sort of an infectious process causing your diarrhea. The vast majority of these are viral, and get better on their own. You can take Imodium, and lphe-opn-[id number] medication to slow down your loose stools. Take 4 mg for your first dose and then 2 mg after each loose stool, until they are under control. Do not take more than 16 mg in a day. If you develop high fevers, shaking chills, abdominal pain, dehydration, inability to care for yourself at home, or other new/concerning symptoms please return to the emergency department for reevaluation. Otherwise, please follow-up with your primary care doctor early next week to ensure your symptoms are improving. AH LALA MD Mar 08, 2021 07:13
[2021-03-08 07:29] LABS: % BANDS 3 % (0-9); % BASOS 1 % (0-3); % LYMPHS 7 % (24-48); % SEGS 89 % (35-66); PLT ESTIMATE ADEQUATE (ADEQUATE)
[2021-03-08 07:38] VITALS: BP 134/61
[2021-03-08 10:55] LABS: BILIRUBIN,URINE NEGATIVE (NEG); CLARITY,URINE CLEAR; COLOR,URINE AMBER; NITRITE,URINE NEGATIVE (NEG); PH,URINE 5.5 (<5.0-8.0); PROTEIN,URINE NEGATIVE (NEG-TRACE); UROBILINOGEN,URINE 0.2 mg/dL (0.2 mg/dL)
[2021-03-08 11:06] LABS: BACTERIA,URINE 0 /HPF (0-FEW); RBC,URINE 0 /HPF (0-2); WBC,URINE 0 /HPF (0-4)
--- NOTE | 2021-03-08 18:46 | EKG ---
[facility] [address] [place] [address] Test Date: 2021-03-08 Test Time: 06:43:29 Pat Name: AMARILYS SERVIN Department: Room: Gender: M Money Manager: : 1946-10-31 Requested By: HA LALA Order Number: [id number] Reading MD: Teddy Clemens MD Measurements Intervals [place] Rate: 70 P: 59 SC: 198 QRS: -32 QRSD: 82 T: 63 QT: 400 QTc: 435 Interpretive Statements SINUS RHYTHM LAD PRIOR INFERIOR INFARCT Electronically Signed On 03-09-2021 20:38:59 SOCK LINING EXAMINER by Teddy Clemens MD
--- NOTE | 2021-03-10 12:27 | NUR ---
IP: Attempted to contact pt concerning covid results. No answer, left a voicemail to return the call.
--- NOTE | 2021-03-11 16:59 | NUR ---
IP: Informed pt of negative covid results. Pt verbalized understanding.
== END 2021-03-08 11:40 | disposition home or self-care (01) ==
LOC: ER 06:12 → EDBD 06:12 → ER 11:40
DX: R19.7 Diarrhea, unspecified (principal); Z20.822 Contact with and (suspected) exposure to COVID-19; R11.2 Nausea with vomiting, unspecified; R05.9 Cough, unspecified; D72.829 Elevated white blood cell count, unspecified; I11.0 Hypertensive heart disease with heart failure; I50.9 Heart failure, unspecified; E78.00 Pure hypercholesterolemia, unspecified; F17.200 Nicotine dependence, unspecified, uncomplicated
CPT/HCPCS: 36415; 71045; 80053; 81001; 83735; 83880; 84484; 85007; 85025; 87426; 93005; 99285; U0003; U0005

== ENCOUNTER → 2021-04-22 | Outpatient (CLI) | payer MEDICARE ==
[~2021-04-22] MED LIST changes: +BUPIVACAINE MPF 0.25% 10 ML VIAL. ONE; +IOHEXOL 180 MG/ML 10 ML VIAL. ONE; +methylPREDNISolone ACETATE 80 MG/ML VIAL. ONE
--- NOTE | 2021-04-22 09:57 | PDOC ---
Progress Note - Pain Clinic Date of Service: DOS: DATE: 04/22/21 TIME: 09:53 Diagnosis: Dx: Lumbar radiculopathy with lumbar degenerative disease and lumbar spinal stenosis Diabetes type 2 History or Present Illness: HPI: 75-year-old male returns for follow-up last seen November 28, 2020 patient had low back pain left lower extremity about 90% improvement after transforaminal injection on the left at L5-S1. Patient reports he did very well increase activity greater distance walking household activities work activities travel with greater ease and comfort sleeping better patient reports the pain is returning now over the past month or 2 in the low back and left lower extremity posterior gluteus posterior thigh with a tingling sensation into the calf and foot on the left side as well patient reports is a 6 on scale 10 is worst 5 on average 5 its least is a 5 today patient was aching shooting stinging tingling in the leg worse with walking and standing. Patient reports no loss of motor function but significant fatigability of the left leg compared to the right no bowel or bladder incontinence. Patient reports that he did notice his blood sugar was elevated after his last injection we discussed this and the importance of keeping a close watch on the blood sugar after the injection as he is type II diabetic we will have him monitor that closely as well although patient reports it did come down after about 5 to 6 days and we will keep an eye on it and discussed this with his primary care physician if it does not come down fairly quickly. Physical Exam: VS: Blood pressure is 175/88 pulse 79 respirations 18 temperature 97.9 F weight is 216 pounds PE: PHYSICAL EXAMINATION: GENERAL: The patient is awake, alert, oriented, appropriate, very pleasant in demeanor HEENT: Shows normocephalic, atraumatic. Extraocular movements are intact and symmetrical. Patient wearing eyeglasses. Oral cavity: Mucous membranes moist and pink. NECK: Shows anterior throat supple without palpable lymphadenopathy noted. Swallow reflex symmetrical. CHEST: Shows normal on inspection. Breath sounds are clear bilaterally, no rales or rhonchi. HEART: Shows S1, S2 clear. No murmurs auscultated. ABDOMEN: Soft, nontender, nondistended. No palpable organomegaly is noted. BACK: Shows spine grossly in the midline. Normal-appearing cervical lordotic curvature. There is increased thoracic kyphosis, some flattening of the lumbar lordotic curvature. Lumbar paraspinous muscles show symmetrical on inspection, on palpation shows some moderate tenderness diffusely throughout the upper, middle and lower distribution of the paraspinous muscles, but without specific trigger points, without radiation of pain. The patient has good rotational motion of the lumbar spine, both laterally as well as extension and flexion without significant difficulty. No tenderness over the spinous processes, sacrum or sacroiliac regions. EXTREMITIES: Lower extremities show deep tendon reflexes 1+ in the patellar and tendo calcaneus tendons. Motor exam is 5 on a scale of 5 with right dorsiflexion, extension, quadriceps and hamstring flexion and 5/5 on the left. Peripheral pulses are 1+ posterior tibial. No peripheral edema is noted bilaterally. Lower extremities are warm and dry. SKIN: Shows warm and dry, good turgor. No edema. No sores, rashes or bruising throughout. Procedure: Procedure: Options were discussed with the patient. Patient's old chart was reviewed his his current medication regimen updated current review of systems updated today as well. We will proceed with a left transforaminal L5-S1 epidural steroid injection with fluoroscopic guidance. Risks were discussed including but not limited to: Bleeding, infection, possibility of epidural hematoma and subsequent neurological compromise, dural puncture, headaches, spinal cord and/or nerve damage, side effects of steroid medication, potential injection into the vertebral artery at that level and permanent ischemic damage, and poor results regarding pain control. Patient understands and wished to proceed. Patient will return to the clinic in approximate 4 weeks for follow-up, was counseled as to return appointment, activity level, and side effects beware of. Medication Injected: Med Injected: Under sterile prep and drape patient was placed in prone position using C-arm fluoroscopic guidance to identify the L5-S1 distribution oblique and slightly cephalad angled C arm. The left L5-S1 target was identified and using lidocaine for anesthetizing the skin 22-gauge Hanna pencil point needle was then used to enter the skin and into the subcutaneous tissues using direct C-arm fluoroscopic guidance to guide the needle into the transforaminal aspect of the left L5-S1 vertebrae this was confirmed with lateral views showing the needle tip in the superior aspect of the paravertebral region. Aspiration was noted to be negative, -1.5 cc of contrast was then injected with good spread both medially into the epidural space as well as laterally along the nerve root without uptake and without distribution and uptake on digital subtraction. At this time, a solution containing 2 cc of 0.25% bupivacaine and 80 mg of Depo- Medrol was then injected. Needle was withdrawn and sterile bandage was applied. Patient tolerated procedure well had no immediate complications Condition at Discharge: Condition at Discharge: Condition at discharge stable, paced tolerated the procedure well and had no complications. REECE CONLEY MD Apr 22, 2021 09:56
== END | disposition home or self-care (01) ==
LOC: PNCL 09:07
PROVIDERS: ATTEND Anesthesiology
DX: M51.16 Intervertebral disc disorders with radiculopathy, lumbar region (principal); M48.061 Spinal stenosis, lumbar region without neurogenic claudication; E11.9 Type 2 diabetes mellitus without complications; I10 Essential (primary) hypertension; E78.00 Pure hypercholesterolemia, unspecified; F17.210 Nicotine dependence, cigarettes, uncomplicated; Z79.84 Long term (current) use of oral hypoglycemic drugs; Z79.899 Other long term (current) drug therapy; Z98.890 Other specified postprocedural states; Z72.89 Other problems related to lifestyle
CPT/HCPCS: 64483; J1040; J3490; Q9965

== ENCOUNTER → 2021-06-04 | Outpatient (CLI) | payer MEDICARE ==
[~2021-06-04] MED LIST changes: -BUPIVACAINE MPF 0.25% 10 ML VIAL. ONE; -IOHEXOL 180 MG/ML 10 ML VIAL. ONE; +REGADENOSON 0.4 MG/5 ML DISP.SYRIN. IV ONE; -methylPREDNISolone ACETATE 80 MG/ML VIAL. ONE
--- NOTE | 2021-06-04 14:22 | RAD ---
MR#: [id number] Date of Study: 06/04/2021 Ordering Physician: TRACIE HERNANDEZ Referring Physician: LETI TREVIÑO Tech: MEENAKSHI Navarro APPROVED REPORT Test Type: Pharmacological Stress Nurse/Tech: Josefa He R.N. Test Indications: non-ischemic cardiomyopathy Cardiac History: htn,DM Medications: See Electronic Medical Record Medical History: See Electronic Medical Record Resting ECG: SR Resting Heart Rate: 62 bpm Resting Blood Pressure: 185/73mmHg Pretest Chest Pain: No chest pain Nurse/Tech Notes S1S2, lungs CTA but deminished Consent: The procedure was explained to the patient in lay terms. Informed consent was witnessed. Efra eout was entered into [employer]. History and Stress Test performed by MEENAKSHI Navarro Pharm. Details Pharmacologic stress testing was performed using 0.4mg per 5ml of regadenoson given intravenously ove r 7-10 seconds. Stress Symptoms SOA POST EXERCISE Reason for Termination: Infusion complete Max HR: 85 bpm Max Blood Pressure: 203/77mmHg Blood Pressure response to exercise: Normal blood pressure response during stress. Heart Rate response to exercise: WNL Chest Pain: No. Arrhythmia: No. had 2 pvc's INTERPRETATION Stress EKG Conclusion: The resting EKG showed a sinus rhythm with nonspecific ST-T wave changes. The stress EKG showed no significant changes from baseline. Baseline abnormal EKG but no EKG evidence of stress-induced ischemia. Imaging Protocol IMAGE PROTOCOL: Rest Tc-99m/stress Tc-99m 1 day Rest: Stress: Viability: Radiopharm.Tc99m [id number] Sestamibi Dose10.4mCi 33mCi Duration 15min. 10min. Inj-Img Ayeh41tzs. 60min. Rest Admin Site:IV - Right WristAdministrator:MEENAKSHI Navarro Stress Admin Site: IV - Right WristAdministrator: Farooq Lindsay, RT (R)(N) STRESS DATA End Diast. Vol.158.0mlAv. Heart Rate86.0bpm End Syst. Vol.63.0mlCO Index BSA0.0L/min Myocardial Mrfl855.0gEject. Xmgqvljj71.0% Stress Rates Pk. Fill Rate2.29EDV/secLVtime Pk. Fill 199.61msec Pk. Empty Rate3.61ESV/secLVtime Pk. Ermtd522.50msec 1/3 Pk. Fill0.50EDV/sec Stress Scores Regional WT0.00Summed WT6.00 Regional WM0.00Summed WM3.00 LV Perfusion The stress scans showed no significant defects. The rest scans showed no significant defects. Nuclear imaging shows no reversible ischemia or infarct. Wall Motion Left ventricular systolic function appears intact with an ejection fraction of 60%. LV Perf. Quant 17 Seg. SSS0.00 17 Seg. SRS0.00 17 Seg. SDS0.00 Stress Defect Extent (% LAD)0.00Rest Defect Extent (% LAD)0.00Rev. Defect Extent (% LAD)0.00 Stress Defect Extent (% LCX) 0.00Rest Defect Extent (% LCX)0.00Rev. Defect Extent (% LCX)0.00 Stress Defect Extent (% RCA)0.00Rest Defect Extent (% RCA)0.00Rev. Defect Extent (% RCA)0.00 Stress Defect Extent (% YUE)0.00Rest Defect Extent (% YUE)0.00Rev. Defect Extent (% YUE)0.00 Conclusion 1. Abnormal baseline EKG but no EKG evidence of stress-induced ischemia. 2. Nuclear imaging shows no reversible ischemia or infarct. 3. LV calculated ejection fraction of 60%. 4. Moderately low risk Lexiscan nuclear stress test. Signed by : Abner Silver MD Electronically Approved : 06/04/2021 14:22:25
== END ==
LOC: EDBD → NM 07:38
PROVIDERS: ATTEND Internal Medicine Cardiovascular Disease
DX: R94.31 Abnormal electrocardiogram [ECG] [EKG] (principal); I42.9 Cardiomyopathy, unspecified
CPT/HCPCS: 78452; 93017; A9500; J2785